=== PATIENT | male | born 1960 | race Caucasian/White ===

== ENCOUNTER → 2018-06-05 14:39 | Emergency (ER) | payer BC ==
[~2018-06-05 14:39] MED LIST: Iohexol 300* (CONTRAST) 10 ML SDV IV ONE; Ketorolac INJ* 30 MG/ML 1 ML VIAL IV PUSH ONE; Morphine VIAL* 10 MG/ML 1 ML VIAL IV ONE
--- NOTE | 2018-06-05 14:55 | ED ---
HPI Chest Pain - HPI Summary HPI Summary: Pt is a 58 y/o male brought in by EMS who presents to the ED c/o CP. He had a cardiac ablation yesterday in [place] with complications. Pt was discharged this morning. As per , they fixed 7 spots in his heart. This morning he had mild mid-sternal soreness due to the procedure. Pt had lunch around 14:00 today and afterwards his pain became worse. He rates his current pain an 8/10 in severity. Pt also notes nausea which is now resolved. Pain is made worse with deep breaths. He took Tramadol and Tylenol without relief. Pt was given NTG , Zofran, and ASA by EMS which temporarily lessened his pain. He is a pt of Dr. Estrada. PMHx GERD, AFib, HLD, cardioversion x2. Pt is a former smoker. - History of Current Complaint Time Seen by Provider: 06/05/18 14:46 Hx Obtained From: Patient, Family/[employer] Research Assistant - Onset/Duration: Started Hours Ago - This morning, Worse Since Timing: Constant Initial Severity: Mild Current Severity: Severe Pain Intensity: 8 Pain Scale Used: 0-10 Numeric Chest Pain Location: Mid Sternal Aggravating Factor(s): Deep Breaths Alleviating Factor(s): NTG 123 Associated Signs and Symptoms: Positive: Chest Pain - Allergy/Home Medications Allergies/Adverse Reactions: Allergies Allergy/AdvReac Type Severity Reaction Status Date / Time Penicillins Allergy Rash Verified 06/05/18 14:46 Home Medications: Home Medications Acetaminophen TAB* [Tylenol TAB*] 650 mg PO Q6H PRN 06/05/18 [History Confirmed 06/05/18] Al Hydrox/Mg Hydrox/Simet LIQ* [Maalox Plus*] 30 ml PO Q6H PRN 06/05/18 [ History Confirmed 06/05/18] Dabigatran CAP(NF) [Pradaxa CAP(NF)] 150 mg PO BID 06/05/18 [History Confirmed 06/05/18] Docusate CAP* [Colace Cap*] 200 mg PO DAILY PRN 06/05/18 [History Confirmed 11/16] Fenofibrate(NF) [Tricor(NF)] 145 mg PO DAILY 06/05/18 [History Confirmed ] Omeprazole (Nf) [Prilosec (NF)] 40 mg PO DAILY 06/05/18 [History Confirmed 06/05] Propafenone HCl [Rythmol Sr] 425 mg PO BID 06/05/18 [History Confirmed 06/05/18] traMADol TAB* [Ultram*] 50 mg PO Q6HR PRN 06/05/18 [History Confirmed 06/05/18] PMH/Surg Hx/FS Hx/Imm Hx Endocrine/Hematology History: Reports: Hx Anticoagulant Therapy Denies: Hx Diabetes, Hx Thyroid Disease Cardiovascular History: Reports: Hx Angina, Hx Atrial Fibrillation, Hx Hypercholesterolemia, Other Cardiovascular Problems/Disorders - cardioversion x2 Denies: Hx Coronary Artery Disease, Hx Hypertension, Hx Myocardial Infarction , Hx Pacemaker/ICD, Hx Valvular Heart Disease Respiratory History: Reports: Hx Sleep Apnea Denies: Hx Asthma, Hx Chronic Obstructive Pulmonary Disease (COPD) GI History: Reports: Hx Gastroesophageal Reflux Disease, Hx Hiatal Hernia History: Reports: Hx Benign Prostatic Hyperplasia Denies: Hx Renal Disease Musculoskeletal History: Reports: Hx Back Problems, Hx Gout Sensory History: Reports: Hx Vision Problem Denies: Hx Hearing Aid Opthamlomology History: Reports: Hx Vision Problem Neurological History: Reports: Hx Peripheral Neuropathy Denies: Hx Dementia, Hx Seizures Psychiatric History: Denies: Hx Panic Disorder, Hx Substance Abuse - Surgical History Surgery Procedure, Year, and Place: INTESTINAL BLOCKAGE AGE 8 MONTHS Infectious Disease History: No Infectious Disease History: Denies: Hx Hepatitis, Hx Human Immunodeficiency Virus (HIV), Traveled Outside the [place] in Last 30 Days - Family History Known Family History: Positive: Diabetes, Other - CA, cerebral aneurysm - Social History Hx Substance Use: No Substance Use Type: Reports: None Hx Tobacco Use: Yes Smoking Status (MU): Former Smoker Review of Systems Positive: Chest Pain Positive: Other - pain with breathing Positive: Nausea - resolved All Other Systems Reviewed And Are Negative: Yes Physical Exam - Summary Physical Exam Summary: Appearance: The patient is well-nourished in no acute distress and in no acute pain. Skin: The skin is warm and dry and skin color reflects adequate perfusion. HEENT: The head is normocephalic and atraumatic. The pupils are equal and reactive. The conjunctivae are clear and without drainage. Nares are patent and without drainage. Mouth reveals moist mucous membranes and the throat is without erythema and exudate. The external ears are intact. The ear canals are patent and without drainage. The tympanic membranes are intact. Neck: The neck is supple with full range of motion and non-tender. There are no carotid bruits. There is no neck vein distension. Respiratory: Chest is non-tender. Lungs are clear to auscultation and breath sounds are symmetrical and equal. Cardiovascular: Heart is regular rate and rhythm. There is no murmur or rub auscultated. There is no peripheral edema and pulses are symmetrical and equal. Very decreased heart sounds. Abdomen: The abdomen is soft and non-tender. There are normal bowel sounds heard in all four quadrants and there is no organomegaly palpated. Musculoskeletal: There is no back tenderness noted. Extremities are non-tender with full range of motion. There is good capillary refill. There is no peripheral edema or calf tenderness elicited. Neurological: Patient is alert and oriented to person, place and time. The patient has symmetrical motor strength in all four extremities. Cranial nerves are grossly intact. Deep tendon reflexes are symmetrical and equal in all four extremities. Psychiatric: The patient has an appropriate affect and does not exhibit any anxiety or depression. Triage Information Reviewed: Yes Vital Signs On Initial Exam: Initial Vitals Resp 23 06/05/18 14:44 Vital Signs Reviewed: Yes Diagnostics - Vital Signs Vital Signs Temp Pulse Resp BP Pulse Ox 06/05/18 14:47 97.4 F 88 20 110/81 98 06/05/18 14:44 23 - Laboratory Result Diagrams: 06/05/18 15:09 06/05/18 15:09 Lab Statement: Any lab studies that have been ordered have been reviewed, and results considered in the medical decision making process. - Radiology CXR Radiology Interpretation Completed By: Radiologist Summary of Radiographic Findings: No evidence for pulmonary edema, pneumothorax , or other acute intrathoracic process. ED physician reviewed radiology report. - CT Chest CT CT Interpretation Completed By: Radiologist Summary of CT Findings: No mediastinal air to suggest esophageal perforation. No pericardial effusion is noted. Bibasilar atelectasis is noted. Hepatic steatosis is noted. ED physician reviewed radiology report. - Ultrasound No standard instances Ultrasound Interpretation Completed By: ED Physician Summary of Ultrasound Findings: Echocardiogram: Small amount of pericardial fluid. Pending official radiology report. - EKG 14:45 Cardiac Rate: NL - 85 bpm EKG Rhythm: Sinus Rhythm ST Segment: Normal Ectopy: None Summary of EKG Findings: No STEMI Chest Pain Course/Dx - Course Course Of Treatment: Mr. Ritchie presented to the emergency department complaining of chest pain. He had an extensive cardiac of lesion yesterday and went home from the hospital today. He had lunch and then the chest pain that he has been having all day got acutely and suddenly worse. He complained of it being exacerbated by taking a breath but not having shortness of breath. He looked uncomfortable on arrival but was nontoxic in appearance with stable vitals. Labs were obtained and chest x-ray after EKG was found to be in normal sinus rhythm with no acute changes. Dr. Richards was contacted and recommended echocardiogram and a contrasted CT scan to rule out esophageal rupture. Both of those tests were negative aside from a slight amount of pericardial fluid on echo. And Dr. Richards felt it was safe to discharge him and treat him symptomatically. - Diagnoses Provider Diagnoses: Chest pain - Provider Notifications Discussed Care Of Patient With: Sarmad Richards Time Discussed With Above Provider: 15:50 Instructed by Provider To: Other - He recommends an echo and CT. At 16:10 he is in the room for a consult. He states the pt can be discharged after the CT and echo are done. Discharge - Sign-Out/Discharge Documenting (check all that apply): Patient Departure - Discharge Patient Received Moderate/Deep Sedation with Procedure: No - Discharge Plan Condition: Stable Disposition: HOME Prescriptions: oxyCODONE/Acetamin 5/325 MG* [Percocet 5/325 TAB*] 1 tab PO Q6H PRN #20 tab MDD 4 PRN Reason: Pain Patient Education Materials: Chest Pain (ED) Referrals: Sarmad Richards MD [Medical Doctor] - (2-3 days) Shady Loco MD [Primary Care Provider] - Additional Instructions: Take Ibuprofen as needed for pain. Stop taking Tramadol. RETURN TO THE ED WITH ANY NEW OR WORSENING SYMPTOMS. - Billing Disposition and Condition Condition: STABLE Disposition: Home - Attestation Statements Document Initiated by Scribe: Yes Documenting Scribe: Isabelle Srinivasan Provider For Whom Scribe is Documenting (Include Credential): Eleazar Jordan MD Scribe Attestation: Isabelle Williamson, scribed for Eleazar Jordan MD on 06/05/18 at 1752. Scribe Documentation Reviewed: Yes Provider Attestation: The documentation as recorded by the scribe, Isabelle Srinivasan accurately reflects the service I personally performed and the decisions made by me, Eleazar Jordan MD Status of Scribe Document: Viewed
--- OUTSIDE RECORDS SUMMARY | 2018-06-05 15:00 | XMS REPORT | Continuity of Care Document ---
:1960 External Reference #:[id number] Author Name Shady Loco M.D. Address [address] [facility] [place] [address] Care Team Providers Name Role Phone Shady Loco MD Care Team Information [employer] Unavailable Shady Loco MD Primary Care Physician Unavailable Payers Date Identification Numbers Payment Provider Subscriber Effective: 2017 Policy Number: [id number] [facility] Exchange Lindsay Thornton Group Number: [id number] [address] [id number] PayID: [id number] [place] [address] Advance Directives Description No Information Available Problems Date Description Provider Status Onset: 03/10/2012 Atrial fibrillation Shady Loco M.D. Active Onset: 08/17/2012 Hyperlipidemia Shady Loco M.D. Active Onset: 12/25/2012 Gastroesophageal reflux disease Shady Loco M.D. Active Onset: 06/25/2013 Backache Shady Loco M.D. Active Onset: 07/10/2013 Idiopathic peripheral neuropathy Shady Loco M.D. Active Onset: 07/10/2013 Sleep apnea Shady Loco M.D. Active Onset: 07/10/2013 Benign prostatic hypertrophy Shady Loco M.D. Active without outflow obstruction Onset: 11/20/2015 Degenerative joint disease Shady Loco M.D. Active involving multiple joints Onset: 09/24/2016 Gouty arthritis of the ankle and/or Shady Loco M.D. Active foot Onset: 04/17/2017 Paroxysmal atrial fibrillation Shady Loco M.D. Active Onset: 01/14/2014 Disorder of rectum Shady Loco M.D. Resolved Resolved: 11/22/2015 Onset: 11/20/2015 Persistent atrial fibrillation Shady Loco M.D. 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 Tobacco Use Start: Unknown End: Former Cigarette Smoker quit cold turkey Unknown 1 Pack Daily Smoking Status Reviewed: 08/21/17 Former Cigarette Smoker quit cold turkey 1 Pack Daily ETOH Use Denies alcohol use Recreational Drug Use Denies Drug Use Tobacco Use Start: Unknown End: Patient is a former Unknown smoker Exercise Type/Frequency no reg exercise but is Current active in his job Sun Exposure Uses sunscreen Seat Belt/Car Seat Always uses a seat belt Allergies, Adverse Reactions, Alerts Date Description Reaction Status Severity Comments 08/07/2001 Penicillin Active Medications Medication Date Status Form Strength Qnty SIG Indications Ordering Provider Fenofibrate 09/24 Active Tablets 145mg 90tab Take One Shady s Tablet By Beronica Mouth M.DYadira Every Day Pradaxa 05/24 Active Capsules 150mg 180ca Take One Shady ps Capsule By Beronica Mouth M.DYadira Twice A Day Tramadol HCL 08/05 Active Tablets 50mg 60tab Take One M25.50 Shady s Tablet By Beronica Mouth M.DYadira Every 6 Hours as Needed Maximum Daily Dose=4 Metoprolol 06/25 Active Tablets 25mg 180ta 1 by mouth Shady F. Succinate ER 24HR bs twice a Shallish, day M.D. Omeprazole 06/25 Active Capsules 20mg 90cap Take One K21.[address] s Capsule By Beronica Mouth M.DYadira Every Day Propafenone HCL Active Caps ER 425mg bid Unknown ER / 12HR Colchicine 11/10 Hx Tablets 0.6mg 30tab 1 by mouth Shady F. s 2-3 a day Blaine Loco as needed M.D. 05/25 Methylprednisolon 11/10 Hx TBPK 4mg 21uni take as Shady F. ts Blaine Dave M.D. 11/17 Medrol 08/22 Hx TBPK 4mg 1unit take dose R21 Ly Kym s pack as DONTAE [place] - directed 11/10 Lyrica 04/17 Hx Capsules 150mg 1 po bid Shady F. Blaine Loco M.D. 08/22 Lyrica 12/26 Hx Capsules 50mg 60cap Take One Shady F. s Capsule By Beronica, - Mouth M.D. 04/17 Twice A Day; Maximum Daily Dose=2 Capsules pv Vitamin D3 12/22 Hx 100un Take One Nikki 1,000 Unit its Tablet By Gilbert, - Mouth M.D. 12/26 Every Vitamin D-3 12/16 Hx Capsules 1000Unit 180ca 2 by mouth Shady F. ps every day Blaine Loco M.D. 05/25 Prednisone 09/17 Hx Tablets 20mg 15tab / tabs Sandie s po qd x 2 [place], - days, 2 Afnp-C 09/26 tabs po qd x 3 days , then 1 by mouth every day x 4d, take with food Gabapentin 09/09 Hx Capsules 100mg 60cap Take One Shady F. s Capsule By Beronica, - Mouth M.D. 12/26 Times A Day Atorvastatin 12/05 Hx Tablets 10mg 90tab 1 by mouth Shady F. s every day Blaine Loco.Merrill 04/02 Cefuroxime Axetil 11/29 Hx Tablets 500mg 14tab 1 by mouth D23.5 Maxine s twice a [facility] [employer] - day x 7 Acetazolamide 11/19 Hx Tablets 125mg 20tab 1 po bid, Shady F. s to start Beronica, - day before M.DYadira 04/02 ascent, stop on descent pv Vitamin D3 04/21 Hx 100un Take One Nikki 1,000 Unit its Tablet By Gilbert, - Mouth M.D. 12/16 Every Day Bactroban 02/21 Hx Cream 2% 15uni use as Alejandro Dickerson /2014 ts braxton Garcia, - once a day M.D. 11/29 Vitamin D3 08/18 Hx Tablets 1000Unit 100ta 1 by mouth bs every day Blaine Stanton M.D. 11/19 Azithromycin 08/05 Hx Tablets 250mg 6tabs 2 take by 463 [place] /2015 mouth Jaimie, - tabletstod [employer] 02/21 ay, one tab days 2-5 until finished Warfarin Sodium 03/02 Hx Tablets 5mg 120ta 2 tablets Shady F. bs by mouth Beronica, - daily; july M.DYadira 05/24 adjusted based on inr results/pr otocol Pravastatin 01/14 Hx Tablets 10mg 30tab Take One Shady F. s Tablet By Beronica - Mouth Armando.Merrill 02/21 Every Day Xarelto 09/13 Hx Tablets 10mg 1 po qd [facility] - [facility] 03/02 Of Atorvastatin 07/28 Hx Tablets 10mg 90tab 1 po qd Shady F. Blaine Ugalde M.D. 01/14 Vitamin D-3 07/10 Hx Capsules 1000Unit 100ca 1 po qd Shady F. ps Blaine Loco M.D. 08/18 Physical Therapy 07/10 Hx treatment Shady F. and Blaine Loco M.D. 09/13 low back pain Warfarin Sodium 06/25 Hx Tablets 5mg 60tab 2 po qd Shady F. s Blaine Loco M.D. 09/13 Ultram 06/25 Hx Tablets 50mg 30tab 1 po q6h Shady F. s prn Blaine Loco M.D. 02/21 Diltiazem CD 12/25 Hx Caps ER 120mg 90cap 1 po qd Shady F. 24HR Blaine Ugalde M.D. 06/25 Aspirin Ec 12/25 Hx Tablets 81mg Shady F. Blaine Mayers M.D. 06/25 Warfarin Sodium 01/16 Hx Tablets 5mg 60tab take as Shady F. s directed Blaine Loco M.D. 12/25 Metoprolol 01/16 Hx Tablets 25mg 90tab 1 /2po qd Shady F. Succinate ER /2011 ER 24HR s Blaine Loco M.D. 12/25 Naprosyn 05/18 Hx Tablets 375mg 30tab 1 po tid Shady F. s prn with Blaine Loco food Mihai 06/08 Famotidine 05/18 Hx Tablets 20mg 180ta Take One Shady F. bs Tablet By Blaine Loco Mouth Mihai 06/25 Twice Day Erythromycin 07/02 Hx Gel 2% Suff apply to 709.9 Butler A. affected Mihai Yip - areas bid 05/18 for weeks Hydrocortisone 07/02 Hx Ointment 1% Suff apply to 709.9 Butler A. /2007 affected Mihai Yip - areas bid 05/18 for weeks Aciphex 05/27 Hx Tablets 20mg 30tab 1 PO qd Alejandro JYadira /2006 Blaine Key M.D. 07/02 Guiafenesin 05/26 Hx 600mg 30uni 1-2 bid ts prn Jose, - Cough/Lorenzo Afnp-C 06/04 est Robitussin ac 05/26 Hx 4Oz 1-2 TSP PO Q4H prn AT [facility], - hs Afnp-C 06/05 Nexium 08/07 Hx 40mg 30uni 1 qd ts Jose, - Afnp-C 05/13 Immunizations CPT Code Status Date Vaccine Lot # [id number] Given 05/25/2018 Influenza Virus Vaccine, Recombinant Dna, [id number] [place] [address] Given 04/16/2017 Tdap Tetanus, W Pertussis [id number] Given 12/26/2016 Influenza Vac, Quadrivalent, Slit Virus, Im [id number] 88860 Given 04/02/2016 Influenza Vac, Quadrivalent, Slit Virus, Im [id number] Given 02/21/2015 Influenza Vac, Quadrivalent, Slit Virus, Im [id number] 40417 Given 01/14/2014 DO Not Use Split Influenza Virus Vaccine [id number] 41293 Given 12/25/2012 DO Not Use Split Influenza Virus Vaccine [id number] 28051 Given 04/09/2012 DO Not Use Split Influenza Virus Vaccine [id number] Vital Signs Date Vital Result Comment 05/25/2018 9:48am BP Systolic 106 mmHg BP Diastolic 70 mmHg Heart Rate 104 /min Body Temperature 97.9 F Height 70.75 inches 5'10.75" measured 04/02/16 Weight 271.00 lb BMI (Body Mass Index) 38.1 kg/m2 11/10/2017 10:23am BP Systolic 122 mmHg BP Diastolic 80 mmHg Heart Rate 72 /min Body Temperature 98.0 F Respiratory Rate 18 /min Height 70.75 inches 5'10.75" measured 04/02/16 Weight 265.00 lb BMI (Body Mass Index) 37.2 kg/m2 08/22/2017 12:25pm BP Systolic 112 mmHg BP Diastolic 80 mmHg Heart Rate 56 /min Body Temperature 97.5 F Respiratory Rate 16 /min Height 70.75 inches 5'10.75" measured 04/02/16 Weight 271.12 lb BMI (Body Mass Index) 38.1 kg/m2 04/17/2017 8:28am BP Systolic 108 mmHg BP Diastolic 68 mmHg Heart Rate 76 /min Body Temperature 97.0 F Height 70.75 inches 5'10.75" measured 04/02/16 Weight 275.00 lb BMI (Body Mass Index) 38.6 kg/m2 04/16/2017 9:51am BP Systolic 108 mmHg BP Diastolic 78 mmHg Heart Rate 64 /min Body Temperature 98.0 F Respiratory Rate 18 /min Height 70.75 inches 5'10.75" measured 04/02/16 Weight 275.00 lb BMI (Body Mass Index) 38.6 kg/m2 Right Visual Acuity Distance 20/20 Left Visual Acuity Distance 20/25 12/26/2016 3:04pm BP Systolic 112 mmHg BP Diastolic 72 mmHg Heart Rate 88 /min Body Temperature 97.7 F Respiratory Rate 16 /min Height 70.75 inches 5'10.75" measured 04/02/16 Weight 270.00 lb BMI (Body Mass Index) 37.9 kg/m2 09/24/2016 2:53pm BP Systolic 110 mmHg BP Diastolic 64 mmHg Heart Rate 80 /min Body Temperature 97.9 F Respiratory Rate 16 /min Height 70.75 inches 5'10.75" measured 04/02/16 Weight 266.00 lb BMI (Body Mass Index) 37.4 kg/m2 09/17/2016 4:17pm BP Systolic 128 mmHg BP Diastolic 70 mmHg Heart Rate 84 /min Body Temperature 97.7 F Respiratory Rate 16 /min Height 70.75 inches 5'10.75" measured 04/02/16 Weight 266.50 lb BMI (Body Mass Index) 37.4 kg/m2 09/09/2016 4:14pm BP Systolic 102 mmHg BP Diastolic 74 mmHg Heart Rate 84 /min Body Temperature 97.7 F Height 70.75 inches 5'10.75" measured 04/02/16 Weight 265.25 lb BMI (Body Mass Index) 37.3 kg/m2 05/24/2016 3:02pm BP Systolic 124 mmHg BP Diastolic 78 mmHg Heart Rate 80 /min Body Temperature 98.6 F Respiratory Rate 16 /min Height 70.75 inches 5'10.75" measured 04/02/16 Weight 268.00 lb BMI (Body Mass Index) 37.6 kg/m2 04/02/2016 9:57am BP Systolic 124 mmHg BP Diastolic 80 mmHg Heart Rate 72 /min Body Temperature 98.6 F Respiratory Rate 16 /min Height 70.75 inches 5'10.75" measured 04/02/16 Weight 266.00 lb BMI (Body Mass Index) 37.4 kg/m2 Right Visual Acuity Distance 20/20 corrected Left Visual Acuity Distance 20/20 corrected 11/30/2015 1:09pm BP Systolic 120 mmHg BP Diastolic 70 mmHg Heart Rate 80 /min Body Temperature 98.0 F Respiratory Rate 18 /min Height 71 inches 5'11" Weight 264.00 lb BMI (Body Mass Index) 36.8 kg/m2 11/20/2015 2:38pm BP Systolic 116 mmHg BP Diastolic 66 mmHg Heart Rate 80 /min Body Temperature 97.9 F Respiratory Rate 15 /min Height 71 inches 5'11" Weight 260.00 lb BMI (Body Mass Index) 36.3 kg/m2 03/10/2015 1:41pm BP Systolic 128 mmHg BP Diastolic 80 mmHg Heart Rate 68 /min Body Temperature 97.9 F Respiratory Rate 16 /min Height 71 inches 5'11" Weight 265.00 lb BMI (Body Mass Index) 37.0 kg/m2 Right Visual Acuity Distance 20/20 Left Visual Acuity Distance 20/20 02/21/2015 2:04pm BP Systolic 136 mmHg BP Diastolic 80 mmHg Heart Rate 64 /min Body Temperature 97.4 F Respiratory Rate 18 /min Height 71 inches 5'11" Weight 265.00 lb BMI (Body Mass Index) 37.0 kg/m2 08/05/2014 1:43pm BP Systolic 126 mmHg BP Diastolic 82 mmHg Heart Rate 84 /min Body Temperature 99.3 F Respiratory Rate 17 /min Height 71 inches 5'11" Weight 260.00 lb BMI (Body Mass Index) 36.3 kg/m2 02/02/2014 2:10pm BP Systolic 122 mmHg BP Diastolic 80 mmHg Heart Rate 80 /min Body Temperature 97.4 F Respiratory Rate 16 /min Height 71 inches 5'11" Weight 259.00 lb BMI (Body Mass Index) 36.1 kg/m2 01/14/2014 5:23pm BP Systolic 122 mmHg BP Diastolic 80 mmHg Heart Rate 80 /min Body Temperature 97.6 F Respiratory Rate 14 /min Height 71 inches 5'11" Weight 252.00 lb BMI (Body Mass Index) 35.1 kg/m2 09/13/2013 12:31pm BP Systolic 134 mmHg BP Diastolic 88 mmHg Heart Rate 72 /min Body Temperature 98.3 F Height 71 inches 5'11" Weight 252.00 lb BMI (Body Mass Index) 35.1 kg/m2 07/10/2013 10:57am BP Systolic 110 mmHg BP Diastolic 82 mmHg Heart Rate 90 /min irregular Body Temperature 98.6 F Respiratory Rate 16 /min O2 % BldC Oximetry 98 % Height 72 inches 6'0" 06/25/2013 11:18am BP Systolic 130 mmHg BP Diastolic 92 mmHg Heart Rate 78 /min Body Temperature 97.9 F Respiratory Rate 16 /min Height 72 inches 6'0" Weight 268.00 lb BMI (Body Mass Index) 36.3 kg/m2 12/25/2012 2:29pm BP Systolic 116 mmHg BP Diastolic 74 mmHg Heart Rate 80 /min Respiratory Rate 14 /min Height 72 inches 6'0" Weight 261.00 lb BMI (Body Mass Index) 35.4 kg/m2 08/17/2012 12:18pm BP Systolic 122 mmHg BP Diastolic 84 mmHg Heart Rate 68 /min Body Temperature 97.2 F Respiratory Rate 16 /min Height 62 inches 5'2" Weight 258.00 lb BMI (Body Mass Index) 47.2 kg/m2 05/04/2012 1:35pm BP Systolic 122 mmHg BP Diastolic 84 mmHg Heart Rate 72 /min Body Temperature 96.2 F Height 72 inches 6'0" Weight 262.00 lb BMI (Body Mass Index) 35.5 kg/m2 03/10/2012 7:48pm BP Systolic 140 mmHg BP Diastolic 88 mmHg Heart Rate 80 /min Body Temperature 98.1 F Height 72 inches 6'0" Weight 258.00 lb BMI (Body Mass Index) 35.0 kg/m2 03/02/2012 2:18pm BP Systolic 106 mmHg BP Diastolic 66 mmHg Heart Rate 76 /min Height 72 inches 6'0" Weight 265.00 lb BMI (Body Mass Index) 35.9 kg/m2 01/17/2012 8:33am BP Systolic 122 mmHg BP Diastolic 78 mmHg Heart Rate 78 /min Body Temperature 98.4 F Height 72 inches 6'0" Weight 255.00 lb BMI (Body Mass Index) 34.6 kg/m2 Right Visual Acuity Distance 20/20 Corrected Left Visual Acuity Distance 20/20 Corrected 09/28/2010 11:50am BP Systolic 126 mmHg BP Diastolic 80 mmHg Heart Rate 76 /min Body Temperature 97.3 F Respiratory Rate 12 /min Height 72 inches 6'0" Weight 252.00 lb BMI (Body Mass Index) 34.2 kg/m2 06/08/2010 1:07pm BP Systolic 130 mmHg BP Diastolic 82 mmHg Heart Rate 72 /min Respiratory Rate 15 /min Height 72 inches 6'0" Weight 260.00 lb BMI (Body Mass Index) 35.3 kg/m2 05/18/2010 1:05pm BP Systolic 134 mmHg BP Diastolic 84 mmHg Heart Rate 100 /min Body Temperature 98.5 F Height 72 inches 6'0" Weight 260.00 lb BMI (Body Mass Index) 35.3 kg/m2 07/03/2007 11:58am BP Systolic 120 mmHg BP Diastolic 80 mmHg Heart Rate 72 /min Body Temperature 98.1 F Height 72 inches 6'0" 05/13/2006 1:52pm BP Systolic 128 mmHg BP Diastolic 90 mmHg Heart Rate 96 /min Height 72 inches 6'0" Weight 253.00 lb BMI (Body Mass Index) 34.3 kg/m2 05/26/2002 3:05pm BP Systolic 130 mmHg BP Diastolic 84 mmHg Heart Rate 78 /min Body Temperature 98.9 F Height 72 inches 6'0" Weight 232.00 lb BMI (Body Mass Index) 31.5 kg/m2 08/07/2001 1:20pm BP Systolic 120 mmHg BP Diastolic 82 mmHg Heart Rate 88 /min Height 72 inches 6'0" Weight 234.00 lb BMI (Body Mass Index) 31.7 kg/m2 Results Test Date Facility Test Result H/L Range Note Ua - Non Micro (Fma) 05/25/2018 [facility] Medicine Appearance Clear (607)- - Color Yellow Glucose, Urine (Fma/CMC/CTX) Negative Bilirubin Negative Ketones Trace # SP Grav 1.030 Blood Negative PH 5.5 Protein Negative Urobil 0.2 Nitrite Negative Leukocytes (Fma/CMC/Centrex) Negative Laboratory test 05/25/2018 [facility] ([facility]) Free T4 <pending> 0.75- 1.54 finding TSH <pending> 0.5-5.0 PSA (ALL Lab Comp) <pending> 0.0-4.0 Laboratory test 11/10/2017 [facility] C Reactive 5.99 mg/L N <8.01 1, 2 finding Protein Laboratory test 11/10/2017 [facility] ([facility]) Uric Acid 6.9 mg/dL 2.5- 9.2 finding Lipid Profile 11/10/2017 [facility] ([facility]) Cholesterol 165 mg/dL 120- 200 Triglycerides 142 mg/dL 30-200 HDL Cholesterol 35 mg/dL 30-70 LDL (Calculated) 102 CALC 0-129 VLDL Cholesterol 28 mg/dL 0-50 HDL Risk Factor 4.7 CALC High 0.0-4.4 Comprehensive Metabolic 11/10/2017 [facility] ([facility]) Sodium 138 mEq/L 134-149 Prof Potassium 4.1 mEq/L 3.6-5.5 Chloride 104 mEq/L 94-112 Carbon Dioxide 27 mEq/L 21-32 Glucose 80 mg/dL 70-105 BUN 24 mg/dL 6-26 Creatinine 1.2 mg/dL 0.6-1.4 BUN/Creat Ratio 20.0 CALC 8.0-36.0 Calcium 9.4 mg/dL 8.6-10.2 Total Protein 6.9 g/dL 6.4-8.3 Albumin 4.7 g/dL 3.8-5.5 Globulin 2.2 g/dL 2.0-4.8 A/G Ratio 2.1 CALC 0.6-2.3 Alk. Phosphatase 40 U/L 22-95 Alt (SGPT) 41 U/L High 7-35 3 Ast (Sgot) 18 U/L 5-34 Total Bilirubin 0.6 mg/dL 0.2-1.3 GFR Non- >60 ml/min/1.73m^ >=60 GFR >60 ml/min/1.73m^ >=60 CBC Electronic Fma 11/10/2017 [facility] ([facility]) WBC 8.2 x10^3/UL 4.0- 10.0 RBC 5.05 x10^6/UL 3.93-6.00 HGB 15.3 g/dL 12.0-17.0 HCT 44 % 35-50 MCV 87.5 fL 80.0-95.0 MCH 30.3 pg 25.6-32.2 MCHC 34.6 g/dL 32.2-36.0 RDW-CV 12.8 % 11.6-14.4 PLT 228 x10^3/UL 163-400 MPV 9.1 fL Low 9.4-12.4 Laci# 5.31 x10^3/UL 1.56-6.13 Lymph# 2.20 x10^3/UL 1.18-3.74 Todd# 0.51 x10^3/UL 0.24-0.82 Eos # 0.2 x10^3/UL 0.0-0.5 Baso # 0.04 x10^3/UL 0.01-0.08 Laci% 64.5 % 34.0-70.0 Lymph % 26.7 % 20.0-52.0 Todd% 6.2 % 5.0-12.0 Eos% 1.9 % 0.7-7.0 Baso% 0.5 % 0.1-1.2 Laboratory test finding 11/10/2017 [facility] ([facility]) TSH 3.94 mIU/L 0.50-6.00 CK 50 U/L 38-174 Laboratory test 08/05/2017 [facility] (General) [facility] Lab See Attached finding Test Laboratory test 04/17/2017 [facility] ([facility]) PSA 0.9 ng/mL 0.0-4.0 finding Complete Blood 04/17/2017 [facility] ([facility]) WBC 6.7 x10^3/UL 3.6-9.6 Count RBC 4.94 x10^6/UL 3.90-5.70 HGB 15.4 g/dL 12.1-17.2 HCT 45 % 36-50 MCV 92.0 fL 82.2-97.4 MCH 31.2 pg 27.6-33.3 MCHC 34.0 g/dL 33.0-35.5 RDW 13.1 % 11.6-13.7 PLT 247 x10^3/UL 150-400 MPV 7.6 fL 7.4-10.4 Gran # 4.5 x10^3/UL 1.5-7.2 Lymph# 2.0 x10^3/UL 0.7-4.9 Todd# 0.2 x10^3/UL 0.1-0.9 Gran % 65.6 % 42.2-75.2 Lymph % 30.1 % 20.5-51.1 Todd% 4.3 % 1.7-9.3 Lipid Profile 04/17/2017 [facility] ([facility]) Cholesterol 176 mg/dL 120- 200 Triglycerides 119 mg/dL 30-200 HDL Cholesterol 34 mg/dL 30-70 LDL (Calculated) 118 CALC 0-129 VLDL Cholesterol 24 mg/dL 0-50 HDL Risk Factor 5.2 CALC High 0.0-4.4 Comprehensive Metabolic 04/17/2017 [facility] (a) Sodium 147 mEq/L 134-149 Prof Potassium 4.6 mEq/L 3.6-5.5 Chloride 109 mEq/L 94-112 Carbon Dioxide 26 mEq/L 21-32 Glucose 103 mg/dL 70-105 BUN 20 mg/dL 6-26 Creatinine 1.1 mg/dL 0.6-1.4 BUN/Creat Ratio 18.2 CALC 8.0-36.0 Calcium 9.2 mg/dL 8.6-10.2 Total Protein 6.6 g/dL 6.4-8.3 Albumin 4.6 g/dL 3.8-5.5 Globulin 2.0 g/dL 2.0-4.8 A/G Ratio 2.3 CALC 0.6-2.3 Alk. Phosphatase 47 U/L 22-95 Alt (SGPT) 46 U/L High 7-35 Ast (Sgot) 22 U/L 5-34 Total Bilirubin 0.6 mg/dL 0.2-1.3 GFR Non- >60 ml/min/1.73m^ >=60 GFR >60 ml/min/1.73m^ >=60 Laboratory test finding 04/17/2017 [facility] (a) TSH 2.77 mIU/L 0.50-6.00 CK 89 U/L 38-174 Ua - Non Micro (a) 04/16/2017 [facility] Appearance CLEAR (607)- - Color YELLOW Glucose, Urine (Fma/CMC/CTX) NEG Bilirubin NEG Ketones NEG SP Grav 1.025 Blood NEG PH 6.0 Protein NEG Urobil 0.2 Nitrite NEG Leukocytes (a/[facility]/Centrex) NEG Laboratory test 01/08/2017 [facility] Hemoglobin A1c 5.5 % 4.1-5.7 finding (607)- - (a) Laboratory test 01/08/2017 [facility] C6 B. burgdorferi <0.91 0.00-0.90 [address] [place] [address] (Lyme) [place] [address] (607)- - Methylmalonic Acid, 01/08/2017 [facility] Methylmalonic 242 0-[address] [place] [address] Acid, Serum nmol/[place] [address] (607)- - Spep Serum Protein 01/08/2017 [facility] Protein, Total, 6.7 g/dL 6.0-8.[address] [place] [address] [place] [address] (607)- - Albumin 3.9 g/dL 2.9-4.4 Bvkdo-8-Bxxtnkfk 0.2 g/dL 0.0-0.4 Beevc-0-Dryouoho 0.5 g/dL 0.4-1.0 Beta Globulin 1.1 g/dL 0.7-1.3 Gamma Globulin 1.0 g/dL 0.4-1.8 M-Zoran Not Observed g/dL Not Observed Globulin, Total 2.8 g/dL 2.2-3.9 A/G Ratio 1.4 0.7-1.7 Please note: See Comment: 5 Lyme AB/Western 01/08/2017 [facility] Lyme IgG/IgM <0.91 ISR 0.00-0.90 6 Blot Reflex [address] [facility] [place] [address] (607)- - Lyme Disease Ab, Quant, IgM <0.80 index 0.00-0.79 7 Laboratory test 01/08/2017 [facility] PDF [id number] SEE IMAGE finding [address] [place] [address] (651)- - Laboratory test 01/08/2017 [facility] (a) Vitamin B-12 557 pg/mL 230-10 finding 50 Folate Level 9.01 ng/mL 3.00-16.00 Complete Blood Count 11/25/2016 [facility] (Fma) WBC 6.5 x10^3/UL 3.6-9.6 RBC 5.31 x10^6/UL 3.90-5.70 HGB 16.6 g/dL 12.1-17.2 HCT 49 % 36-50 MCV 92.0 fL 82.2-97.4 MCH 31.3 pg 27.6-33.3 MCHC 34.0 g/dL 33.0-35.5 RDW 13.1 % 11.6-13.7 PLT 243 x10^3/UL 150-400 MPV 7.1 fL Low 7.4-10.4 Gran # 4.4 x10^3/UL 1.5-7.2 Lymph# 1.8 x10^3/UL 0.7-4.9 Todd# 0.3 x10^3/UL 0.1-0.9 Gran % 66.3 % 42.2-75.2 Lymph % 28.1 % 20.5-51.1 Todd% 5.6 % 1.7-9.3 Comprehensive Metabolic 11/25/2016 [facility] ([facility]) Sodium 134 mEq/L 134-149 Prof Potassium 4.4 mEq/L 3.6-5.5 Chloride 97 mEq/L 94-112 Carbon Dioxide 32 mEq/L 21-32 Glucose 124 mg/dL High 70-105 BUN 21 mg/dL 6-26 Creatinine 1.0 mg/dL 0.6-1.4 BUN/Creat Ratio 21.0 CALC 8.0-36.0 Calcium 9.3 mg/dL 8.6-10.2 Total Protein 6.6 g/dL 6.4-8.3 Albumin 4.6 g/dL 3.8-5.5 Globulin 2.0 g/dL 2.0-4.8 A/G Ratio 2.3 CALC 0.6-2.3 Alk. Phosphatase 49 U/L 22-95 Alt (SGPT) 25 U/L 7-35 Ast (Sgot) 20 U/L 5-34 Total Bilirubin 0.8 mg/dL 0.2-1.3 GFR Non- >60 ml/min/1.73m^ >=60 GFR >60 ml/min/1.73m^ >=60 Laboratory test 11/25/2016 [facility] (a) Free T4 1.00 ng/dL 0.75- 1.54 finding TSH 1.90 mIU/L 0.50-6.00 Lipid Profile 11/25/2016 [facility] (a) Cholesterol 209 mg/dL High 120-200 Triglycerides 204 mg/dL High 30-200 HDL Cholesterol 39 mg/dL 30-70 LDL (Calculated) 129 CALC 0-129 VLDL Cholesterol 41 mg/dL 0-50 HDL Risk Factor 5.4 CALC High 0.0-4.4 Laboratory test finding 11/25/2016 [facility] (a) CK 71 U/L 38- 174 8 Uric Acid 7.4 mg/dL 2.5-9.2 Laboratory test 09/09/2016 [facility] C-Reactive 1.6 mg/L 0.0-4.[address] [place] [address] Protein, [place] [address] (988)- - Protein 09/09/2016 [facility] Protein, Total, 7.2 g/dL 6.0-8.[address] [place] [address] Serum W/[place] [address] (149)- - Albumin 4.1 g/dL 2.9-4.4 Pcvwo-9-Khhllkqe 0.2 g/dL 0.0-0.4 Qagux-6-Aqfqpxoc 0.7 g/dL 0.4-1.0 Beta Globulin 1.1 g/dL 0.7-1.3 Gamma Globulin 1.0 g/dL 0.4-1.8 M-Zoran Not Observed g/dL Not Observed Globulin, Total 3.1 g/dL 2.2-3.9 A/G Ratio 1.3 0.7-1.7 Please note: See Comment: 9 P E Interpretation, S See Comment: 10 Laboratory test finding 09/09/2016 [facility] ([facility]) CK 85 U/L 38- 174 Vitamin B-12 828 pg/mL 230-1050 Vitamin D25 41 30-100 LDL, Direct 98 mg/dL 0-130 Lipid Profile 09/09/2016 [facility] ([facility]) Cholesterol 227 mg/dL High 120-200 Triglycerides 481 mg/dL High 30-200 HDL Cholesterol 34 mg/dL 30-70 LDL (Calculated) 97 CALC 0-129 11 VLDL Cholesterol 96 mg/dL High 0-50 HDL Risk Factor 6.7 CALC High 0.0-4.4 Laboratory test 09/09/2016 [facility] PDF [id number] SEE IMAGE finding [id number] [place] [id number] [phone] Complete Blood 09/09/2016 [facility] ([facility]) WBC 6.8 3.6-9. Count x10^3/UL 6 RBC 5.30 x10^6/UL 3.90-5.70 HGB 16.4 g/dL 12.1-17.2 HCT 49 % 36-50 MCV 93.0 fL 82.2-97.4 MCH 30.9 pg 27.6-33.3 MCHC 33.3 g/dL 33.0-35.5 RDW 13.6 % 11.6-13.7 PLT 210 x10^3/UL 150-400 MPV 6.7 fL Low 7.4-10.4 Gran # 4.1 x10^3/UL 1.5-7.2 Lymph# 2.2 x10^3/UL 0.7-4.9 Todd# 0.5 x10^3/UL 0.1-0.9 Gran % 59.0 % 42.2-75.2 Lymph % 33.3 % 20.5-51.1 Todd% 7.7 % 1.7-9.3 Laboratory test 09/09/2016 [facility] Diego [facility] ([facility]) Free T4 1.00 ng/dL 0.75- 1.54 finding TSH 2.49 mIU/L 0.50-6.00 Comprehensive Metabolic 09/09/2016 [facility] ([facility]) Sodium 141 mEq/L 134-149 Prof Potassium 4.1 mEq/L 3.6-5.5 Chloride 103 mEq/L 94-112 Carbon Dioxide 26 mEq/L 21-32 Glucose 98 mg/dL 70-105 BUN 22 mg/dL 6-26 Creatinine 1.1 mg/dL 0.6-1.4 BUN/Creat Ratio 20.0 CALC 8.0-36.0 Calcium 9.4 mg/dL 8.6-10.2 Total Protein 7.1 g/dL 6.4-8.3 Albumin 4.9 g/dL 3.8-5.5 Globulin 2.2 g/dL 2.0-4.8 A/G Ratio 2.2 CALC 0.6-2.3 Alk. Phosphatase 63 U/L 22-95 Alt (SGPT) 30 U/L 7-35 Ast (Sgot) 20 U/L 5-34 Total Bilirubin 0.5 mg/dL 0.2-1.3 GFR Non- >60 ml/min/1.73m^ >=60 GFR >60 ml/min/1.73m^ >=60 Laboratory test finding 05/24/2016 [facility] Inr (a) 1.6 Low 2.0- 3.0 (607)- - Hemoglobin A1c (a) 5.7 % 4.1-5.7 Laboratory test finding 05/24/2016 Juan Diego Becker ([facility]) CK 105 U/L 38- 174 Vitamin D25 37 30-100 LDL, Direct 109 mg/dL 0-130 Complete Blood Count 05/24/2016 Juan Diego Becker ([facility]) WBC 7.4 x10^3/UL 3.6-9.6 RBC 5.25 x10^6/UL 3.90-5.70 HGB 16.3 g/dL 12.1-17.2 HCT 48 % 36-50 MCV 91.0 fL 82.2-97.4 MCH 31.1 pg 27.6-33.3 MCHC 34.2 g/dL 33.0-35.5 RDW 13.9 % High 11.6-13.7 PLT 236 x10^3/UL 150-400 MPV 6.7 fL Low 7.4-10.4 Gran # 4.6 x10^3/UL 1.5-7.2 Lymph# 2.3 x10^3/UL 0.7-4.9 Todd# 0.5 x10^3/UL 0.1-0.9 Gran % 60.6 % 42.2-75.2 Lymph % 32.2 % 20.5-51.1 Todd% 7.2 % 1.7-9.3 Comprehensive Metabolic 05/24/2016 Juan Diego Rosita ([facility]) Sodium 139 mEq/L 134-149 Prof Potassium 4.5 mEq/L 3.6-5.5 Chloride 105 mEq/L 94-112 Carbon Dioxide 29 mEq/L 21-32 Glucose 99 mg/dL 70-105 BUN 17 mg/dL 6-26 Creatinine 1.0 mg/dL 0.6-1.4 BUN/Creat Ratio 17.0 CALC 8.0-36.0 Calcium 9.2 mg/dL 8.6-10.2 Total Protein 7.4 g/dL 6.4-8.3 Albumin 4.4 g/dL 3.8-5.5 Globulin 3.0 g/dL 2.0-4.8 A/G Ratio 1.5 CALC 0.6-2.3 Alk. Phosphatase 68 U/L 22-95 Alt (SGPT) 29 U/L 7-35 Ast (Sgot) 22 U/L 5-34 Total Bilirubin 0.4 mg/dL 0.2-1.3 GFR Non- >60 ml/min/1.73m^ >=60 GFR >60 ml/min/1.73m^ >=60 Lipid Profile 05/24/2016 Juan Diego Rosita ([facility]) Cholesterol 235 mg/dL High 120-200 Triglycerides 571 mg/dL High 30-200 HDL Cholesterol 34 mg/dL 30-70 LDL (Calculated) 87 CALC 0-129 VLDL Cholesterol 114 mg/dL High 0-50 HDL Risk Factor 6.9 CALC High 0.0-4.4 Laboratory test 05/24/2016 Juan Diego Rosita ([facility]) Free T4 0.86 ng/dL 0.75- 1.54 finding TSH 3.00 mIU/L 0.50-6.00 Ua - Non Micro (Fma) 04/02/2016 [facility] Appearance clear (607)- - Color yellow Glucose, Urine (Fma/CMC/CTX) neg Bilirubin neg Ketones neg SP Grav 1.020 Blood neg PH 6.0 Protein neg Urobil 0.2 Nitrite neg Leukocytes (a/[facility]) neg Laboratory test 03/05/2016 [facility] Surgical SEE RESULT 12 finding Pathology BELOW Laboratory test 03/05/2016 [facility] Clotest SEE RESULT 13 finding BELOW Complete Blood 11/20/2015 Adamson Rosita (a) WBC 6.7 x10^3/UL 3.6-9.6 Count RBC 4.87 x10^6/UL 3.90-5.70 HGB 15.8 g/dL 12.1-17.2 HCT 46 % 36-50 MCV 94.0 fL 82.2-97.4 MCH 32.4 pg 27.6-33.3 MCHC 34.4 g/dL 33.0-35.5 RDW 13.7 % 11.6-13.7 PLT 199 x10^3/UL 150-400 MPV 7.0 fL Low 7.4-10.4 Gran # 4.3 x10^3/UL 1.5-7.2 Lymph# 2.1 x10^3/UL 0.7-4.9 Todd# 0.3 x10^3/UL 0.1-0.9 Gran % 63.1 % 42.2-75.2 Lymph % 32.0 % 20.5-51.1 Todd% 4.9 % 1.7-9.3 Rheumatoid 11/20/2015 [facility] Ra Latex 7.1 IU/mL 0.0-13.9 14 Arthritis Factor [address] [facility]. ([facility]) [place] [address] (607)- - Lyme AB/Western 11/20/2015 [facility] Lyme IgG/IgM <0.91 ISR 0.00-0.90 15 Blot Reflex [address] [facility] [place] [address] (607)- - Lyme Disease Ab, Quant, IgM <0.80 index 0.00-0.79 16 Laboratory test 11/20/2015 [facility] Sedimentation Rate 5mm finding (607)- - Comprehensive 11/20/2015 Juan Diego Rosita (a) Sodium 137 mEq/L 134-14 Metabolic Prof 9 Potassium 3.7 mEq/L 3.6-5.5 Chloride 102 mEq/L 94-112 Carbon Dioxide 22 mEq/L 21-32 Glucose 96 mg/dL 70-105 BUN 20 mg/dL 6-26 Creatinine 1.0 mg/dL 0.6-1.4 BUN/Creat Ratio 20.0 CALC 8.0-36.0 Calcium 8.8 mg/dL 8.6-10.2 Total Protein 6.8 g/dL 6.4-8.3 Albumin 4.3 g/dL 3.8-5.5 Globulin 2.5 g/dL 2.0-4.8 A/G Ratio 1.7 CALC 0.6-2.3 Alk. Phosphatase 53 U/L 22-95 Alt (SGPT) 31 U/L 7-35 Ast (Sgot) 20 U/L 5-34 Total Bilirubin 0.4 mg/dL 0.2-1.3 GFR Non- >60 ml/min/1.73m^ >=60 GFR >60 ml/min/1.73m^ >=60 Laboratory test 11/20/2015 Adamson Rosita ([facility]) Free T4 0.97 ng/dL 0.75- 1.54 finding TSH 2.57 mIU/L 0.50-6.00 PSA 1.0 ng/mL 0.0-4.0 Lipid Profile 11/20/2015 Adamson Rosita (a) Cholesterol 252 mg/dL High 120-200 Triglycerides 446 mg/dL High 30-200 HDL Cholesterol 35 mg/dL 30-70 LDL (Calculated) 128 CALC 0-129 VLDL Cholesterol 89 mg/dL High 0-50 HDL Risk Factor 7.2 CALC High 0.0-4.4 Ua - Non Micro (Fma) 11/20/2015 [facility] Appearance clear (607)- - Color yellow Glucose, Urine (Fma/CMC/CTX) neg Bilirubin neg Ketones neg SP Grav 1.020 Blood neg PH 5.5 Protein neg Urobil 0.2 Nitrite neg Leukocytes (a/[facility]) neg Laboratory test 11/20/2015 [facility] Medicine Inr (Fma) 2.6 2.0-3.0 finding (607)- - Laboratory test 11/20/2015 Adamson Rosita (a) Vitamin B-12 863 pg/mL 230-1050 finding LDL, Direct 132 mg/dL High 0-130 Ua - Non Micro (Fma) 03/10/2015 [facility] Appearance CLEAR (607)- - Color YELLOW Glucose, Urine (Fma/CMC/CTX) NEG Bilirubin NEG Ketones NEG SP Grav 1.015 Blood NEG PH 6.0 Protein NEG Urobil 0.2 Nitrite NEG Leukocytes ([facility]ma/CMC/[facility]) NEG Laboratory test 02/21/2015 [facility] Inr (Fma) 2.5 2.0-3.0 finding (607)- - Laboratory test 09/08/2014 [facility] Inr (Fma) 2.1 2.0-3.0 finding (607)- - Laboratory test 08/10/2014 [facility] Inr 1.62 High 0.78-1.07 17, 18 finding Basic Metabolic 08/10/2014 [facility] Sodium 136 mmol/L N 133-145 Panel Potassium 3.8 mmol/L N 3.5-5.0 Chloride 106 mmol/L N 101-111 Co2 Carbon Dioxide 25 mmol/L N 22-32 Anion Gap 5 mmol/L N 2-11 Glucose 125 mg/dL High 70-100 Blood Urea Nitrogen 22 mg/dL N 6-24 Creatinine 0.85 mg/dL N 0.67-1.17 BUN/Creatinine Ratio 25.9 High 8-20 Calcium 8.9 mg/dL N 8.6-10.3 Egfr Non- 94.7 N >60 Egfr 121.7 N >60 19 Lyme Western Blot Ser 08/05/2014 [facility] IgG P93 Ab. Absent [address] [place] [id number] [phone] IgG P66 Ab. Absent IgG P58 Ab. Absent IgG P45 Ab. Absent IgG P41 Ab. Absent IgG P39 Ab. Absent IgG P30 Ab. Absent IgG P28 Ab. Absent IgG P23 Ab. Absent IgG P18 Ab. Absent Lyme IgG WB Interp. Negative 20 IgM P41 Ab. Absent IgM P39 Ab. Absent IgM P23 Ab. Absent Lyme IgM WB Interp. Negative 21 Laboratory test 08/05/2014 [facility] Sed Rate (Fma/CMC/[facility]) 7mm finding (607)- - Inr (Fma) 3.6 High 2.0-3.0 Laboratory test 06/01/2014 [facility] Inr (Fma) 2.0 2.0-3.0 finding (607)- - Laboratory test 03/12/2014 [facility] Inr (Fma) 2.3 2.0-3.0 finding (607)- - Laboratory test 03/08/2014 [facility] Inr (Fma) 1.3 Low 2.0-3.0 finding (607)- - Surgical Pathology 03/02/2014 [facility] S RUN DATE: 03/03/ <SEE NOTE> Ua - Non Micro 02/02/2014 [facility] Appearance CLEAR (Fma) (607)- - Color YELLOW Glucose, Urine (Fma/CMC/CTX) NEG Bilirubin NEG Ketones NEG SP Grav 1.020 Blood NEG PH 7.0 Protein NEG Urobil 1.0 Nitrite NEG Leukocytes ([facility]ma/[facility]) NEG Ua - Non Micro (Fma) 01/14/2014 [facility] Appearance clear (607)- - Color yellow Glucose, Urine (Fma/CMC/CTX) neg Bilirubin neg Ketones neg SP Grav 1.025 Blood neg PH 5.5 Protein neg Urobil 0.2 Nitrite neg Leukocytes (Fma/[facility]) neg Laboratory test finding 09/13/2013 Adamson Rosita (a) TSH 2.96 mIU/L 0.50-6.00 CK 75 U/L 38-174 Lipid Profile 09/13/2013 Adamson Rosita (a) Cholesterol 137 mg/dL 120- 200 Triglycerides 289 mg/dL High 30-200 HDL Cholesterol 42 mg/dL 30-70 LDL (Calculated) 37 CALC 0-129 VLDL Cholesterol 58 mg/dL High 0-50 HDL Risk Factor 3.3 CALC 0.0-4.4 Laboratory test 09/13/2013 Adamson Rosita (a) LDL, Direct 65 mg/dL 0- 130 finding Complete Blood Count 09/13/2013 Adamson Rosita (a) WBC 7.2 x10^3/UL 3.6-9.6 RBC 5.00 x10^6/UL 3.90-5.70 HGB 15.7 g/dL 12.1-17.2 HCT 47 % 36-50 MCV 93.0 fL 82.2-97.4 MCH 31.4 pg 27.6-33.3 MCHC 33.7 g/dL 33.0-35.5 RDW 12.0 % 11.6-13.7 PLT 208 x10^3/UL 150-400 MPV 7.1 fL Low 7.4-10.4 Gran # 5.1 x10^3/UL 1.5-7.2 Lymph# 1.8 x10^3/UL 0.7-4.9 Todd# 0.3 x10^3/UL 0.1-0.9 Gran % 69.1 % 42.2-75.2 Lymph % 26.2 % 20.5-51.1 Todd% 4.7 % 1.7-9.3 Comprehensive Metabolic 09/13/2013 Juan Diego Rosita ([facility]) Sodium 138 mEq/L 134-149 Prof Potassium 4.0 mEq/L 3.6-5.5 Chloride 100 mEq/L 94-112 Carbon Dioxide 25 mEq/L 21-32 Glucose 97 mg/dL 70-105 BUN 20 mg/dL 6-26 Creatinine 1.1 mg/dL 0.6-1.4 BUN/Creat Ratio 18.2 CALC 8.0-36.0 Calcium 9.4 mg/dL 8.6-10.2 Total Protein 7.6 g/dL 6.3-8.1 Albumin 4.8 g/dL 3.8-5.5 Globulin 2.8 g/dL 2.0-4.8 A/G Ratio 1.7 CALC 0.6-2.3 Alk. Phosphatase 71 U/L 22-95 Alt (SGPT) 36 U/L High 7-35 Ast (Sgot) 19 U/L 5-34 Total Bilirubin 0.8 mg/dL 0.2-1.3 Laboratory test 07/21/2013 [facility] Inr (Fma) 3.3 High 2-3 finding (607)- - Lyme Igg/M W/RFX 07/10/2013 [facility] Lyme <0.91 index 0.00-0.90 23, [address] IgG/[place] [address] [phone] Lyme Disease Ab, Quant, IgM <0.91 index 0.00-0.90 25 Lipid Profile 07/10/2013 Juan Diego Rosita ([facility]) Cholesterol 260 mg/dL High 120-200 Triglycerides 702 mg/dL High 30-200 HDL Cholesterol 34 mg/dL 30-70 LDL (Calculated) 86 CALC 0-129 VLDL Cholesterol 140 mg/dL High 0-50 HDL Risk Factor 7.6 CALC High 0.0-4.4 Laboratory test 07/10/2013 [facility] Inr (Fma) 2.8 2-3 finding (607)- - Laboratory test 07/10/2013 Juan Diego Becker ([facility]) Vitamin B-12 592 pg/mL 230-1050 finding Vitamin D25 29 Low 30-100 PSA 1.9 ng/mL 0.0-4.0 LDL, Direct 139 mg/dL High 0-130 Protein Elect 07/10/2013 [facility] Protein Elect SEE BELOW Serum 28 [facility] [place] [address] [phone] Graph Report TO FOLLOW Albumin 4.2 g/dL 3.2-5.6 Alpha 1 Globulin, Serum 0.2 g/dL 0.1-0.4 Alpha 2 Globulin, Serum 0.6 g/dL 0.4-1.2 Beta Globulin, Serum 1.2 g/dL 0.6-1.3 Gamma Globulin 1.0 g/dL 0.5-1.6 M-Zoran Gamma NOT OBSERVED g/dL Not Observed M-Zoran Beta NOT OBSERVED g/dL Not Observed Globulin,Total 3.0 g/dL 2.0-4.5 A/G Ratio 1.4 0.7-2.0 Protein, Total 7.2 g/dL 6.4-8.3 Interpretation, Serum SEE COMMENT 26 Laboratory test 07/03/2013 [facility] Medicine Inr (Fma) 1.7 Low 2.0-3.0 finding (607)- - Laboratory test 06/30/2013 [facility] Inr (Fma) 1.2 Low 2.0-3.0 finding (607)- - Complete Blood Count 06/25/2013 Juan Diego Becker (a) WBC 6.1 x10^3/UL 3.6-9.6 RBC 4.99 x10^6/UL 3.90-5.70 HGB 15.3 g/dL 12.1-17.2 HCT 46 % 36-50 MCV 93.0 fL 82.2-97.4 MCH 30.7 pg 27.6-33.3 MCHC 33.1 g/dL 33.0-35.5 RDW 12.0 % 11.6-13.7 PLT 199 x10^3/UL 150-400 MPV 6.9 fL Low 7.4-10.4 Gran # 3.8 x10^3/UL 1.5-7.2 Lymph# 2.0 x10^3/UL 0.7-4.9 Todd# 0.3 x10^3/UL 0.1-0.9 Gran % 60.6 % 42.2-75.2 Lymph % 34.0 % 20.5-51.1 Todd% 5.4 % 1.7-9.3 Comprehensive Metabolic 06/25/2013 Adamson Rosita ([facility]) Sodium 135 mEq/L 134-149 Prof Potassium 4.1 mEq/L 3.6-5.5 Chloride 95 mEq/L 94-112 Carbon Dioxide 25 mEq/L 21-32 Glucose 99 mg/dL 70-105 BUN 16 mg/dL 6-26 Creatinine 1.1 mg/dL 0.6-1.4 BUN/Creat Ratio 14.5 CALC 8.0-36.0 Calcium 9.2 mg/dL 8.6-10.2 Total Protein 7.3 g/dL 6.3-8.1 Albumin 4.8 g/dL 3.8-5.5 Globulin 2.5 g/dL 2.0-4.8 A/G Ratio 1.9 CALC 0.6-2.3 Alk. Phosphatase 63 U/L 22-95 Alt (SGPT) 30 U/L 10-40 Ast (Sgot) 18 U/L 5-34 Total Bilirubin 0.6 mg/dL 0.2-1.3 Laboratory test 06/25/2013 Adamson Flora ([facility]) Free T4 1.01 ng/dL 0.75- 1.54 finding TSH 2.60 mIU/L 0.50-6.00 Lipid Profile 08/17/2012 Adamson Rosita ([facility]) Cholesterol 228 mg/dL High 120-200 HDL 35 mg/dL 30-70 Triglycerides 376 mg/dL High 30-200 HDL Risk Factor 6.5 CALC High 0.0-4.4 LDL (Calculated) 118 CALC 0-129 27 VLDL (Calculated) 75 mg/dL High 0-50 Comprehensive Metabolic 08/17/2012 Adamson Rosita ([facility]) Albumin 4.7 g/dL 3.8-5.5 Prof Alk. Phos. 64 U/L 22-95 Alt (SGPT) 34 U/L 10-40 Ast (Sgot) 20 U/L 5-34 BUN 22 mg/dL 6-26 Calcium 9.1 mg/dL 8.6-10.2 Chloride 99 mEq/L 94-112 Creatinine 1.2 mg/dL 0.6-1.4 Carbon Dioxide 29 mEq/L 21-32 Glucose 106 mg/dL High 70-105 28 Sodium 142 mEq/L 134-149 Total Bilirubin 0.6 mg/dL 0.2-1.3 Total Protein 7.1 g/dL 6.3-8.1 Potassium 4.7 mEq/L 3.6-5.5 Globulin 2.4 g/dL 2.0-4.8 A/G Ratio 2.0 Calc 0.6-2.3 BUN/Creat Ratio 17.5 Calc 8.0-36.0 Laboratory test finding 08/17/2012 Adamson Rosita ([facility]) TSH 2.26 mIU/L 0.50-6.00 LDL (Direct) 122 mg/dL 0-130 CBC Electronic ([facility]) 08/17/2012 [facility] WBC 6.5 3.6-9.6 (607)- - RBC 5.37 3.90-5.70 Hemoglobin (Fma/CMC/CTX) 15.9 g/dL 12.1 - 17.2 Hematocrit (Fma/CMC/CTX) 48.8 % 36.1 - 50.3 Platelets 227 10^3/ul 150-400 Lymph% 29.6 20.5-51.1 Mixed% 5.8 Neutrophils % 64.6 Mean Corpuscular Vol 91 82.2-97.4 Mean Corpuscular Hemoglobin 29.6 27.6-33.3 Mean Corpuscular Hemo Concen 32.6 32.0-36.0 RDW 11.9 11.6-13.7 Mean Platelet Volume 6.7 6.5-11.0 Laboratory test finding 05/04/2012 [facility] Inr (a) 1.3 Low 2-3 (607)- - Basic Metabolic Profile 04/09/2012 Adamson Rosita (a) BUN 23 mg/dL 6- 26 Calcium 8.8 mg/dL 8.6-10.2 Chloride 100 mEq/L 94-112 Creatinine 1.0 mg/dL 0.6-1.4 Carbon Dioxide 27 mEq/L 21-32 Glucose 114 mg/dL High 70-105 Sodium 138 mEq/L 134-149 Potassium 3.8 mEq/L 3.6-5.5 BUN/Creat Ratio 23.4 Calc 8.0-36.0 CBC Manual Diff-a 04/09/2012 [facility] WBC 7.8 3.6-9.6 (607)- - RBC 5.18 3.90-5.70 Hemoglobin (Fma/CMC/CTX) 15.4 g/dL 12.1 - 17.2 Hematocrit (Fma/CMC/CTX) 47.7 % 36.1 - 50.3 Mean Corpuscular Vol 92 82.2-97.4 Mean Corpuscular Hemoglobin 29.7 27.6-33.3 Mean Corpuscular Hemo Concen 32.3 32.0-36.0 Platelets 215 10^3/ul 150-400 RDW 13.1 11.6-13.7 Mean Platelet Volume 7.0 6.5-11.0 Neutrophil 53 Band 2 Lymphocytes 33 Monocyte 3 Eosinophils 5 Atypical Lymph 4 Z#Comment SEE COMMENTS 29 Laboratory test 04/07/2012 [facility] Inr (a) 1.8 Low 2-3 finding (607)- - Laboratory test 03/16/2012 [facility] Inr (a) 1.7 Low 2.0-3.0 finding (607)- - Laboratory test 03/02/2012 Adamson Rosita ([facility]) PSA 0.90 ng/mL 0.00- 4.00 finding Laboratory test 03/02/2012 [facility] Inr (a) 3.1 High 2-3 finding (607)- - CBC Electronic 03/02/2012 [facility] WBC 7.1 3.6-9.6 ([facility]) (607)- - RBC 5.10 3.90-5.70 Hemoglobin (a/CMC/CTX) 15.8 g/dL 12.1 - 17.2 Hematocrit (a/CMC/CTX) 47.0 % 36.1 - 50.3 Platelets 222 10^3/ul 150-400 Lymph% 33.7 20.5-51.1 Mixed% 5.5 Neutrophils % 60.8 Mean Corpuscular Vol 92 82.2-97.4 Mean Corpuscular Hemoglobin 31.0 27.6-33.3 Mean Corpuscular Hemo Concen 33.36 32.0-36.0 RDW 10.7 Low 11.6-13.7 Mean Platelet Volume 6.9 6.5-11.0 Laboratory test 02/19/2012 [facility] Inr (Fma) 1.8 Low 2.0-3.0 finding (607)- - Laboratory test 02/12/2012 [facility] Inr (Fma) 1.1 Low 2.0-3.0 finding (607)- - Laboratory test 01/31/2012 [facility] Inr (Fma) 1.2 Low 2-3 finding (607)- - Laboratory test 01/24/2012 [facility] Inr (Fma) 1.1 Low 2-3 finding (607)- - Lipid Profile 01/17/2012 Juan Diego Becker (a) Cholesterol 250 mg/dL High 120-200 HDL 41 mg/dL 30-70 Triglycerides 291 mg/dL High 30-200 HDL Risk Factor 6.1 CALC High 0.0-4.4 LDL (Calculated) 151 CALC High 0-129 VLDL (Calculated) 58 mg/dL High 0-50 Comprehensive Metabolic 01/17/2012 Juan Diego Becker (a) Albumin 4.9 g/dL 3.8-5.5 Prof Alk. Phos. 69 U/L 22-95 Alt (SGPT) 33 U/L 10-40 Ast (Sgot) 24 U/L 5-34 BUN 14 mg/dL 6-26 Calcium 9.4 mg/dL 8.6-10.2 Chloride 100 mEq/L 94-112 Creatinine 0.9 mg/dL 0.6-1.4 Carbon Dioxide 24 mEq/L 21-32 Glucose 99 mg/dL 70-105 Sodium 139 mEq/L 134-149 Total Bilirubin 0.5 mg/dL 0.2-1.3 Total Protein 7.2 g/dL 6.3-8.1 Potassium 4.5 mEq/L 3.6-5.5 Globulin 2.3 g/dL 2.0-4.8 A/G Ratio 2.2 Calc 0.6-2.2 BUN/Creat Ratio 14.8 Calc 8.0-36.0 Laboratory test finding 01/17/2012 Juan Diego Becker (a) TSH 2.46 mIU/L 0.50-6.00 LDL (Direct) 119 mg/dL 0-130 Free T4 0.88 ng/dL 0.75-1.54 Ua - Non Micro (Fma) 01/17/2012 [facility] Appearance yellow (607)- - Color clear Glucose, Urine (Fma/CMC/CTX) neg Bilirubin neg Ketones trace # SP Grav 1.020 Blood neg PH 5.5 Protein neg Urobil 0.2 Nitrite neg Leukocytes (a/[facility]) neg Laboratory test finding 01/17/2012 [facility] Inr ([facility]) 0.9 Low 2-3 (607)- - CBC Electronic ([facility]) 01/17/2012 [facility] WBC 6.6 3.6-9.6 (607)- - RBC 5.36 3.90-5.70 Hemoglobin (Fma/CMC/CTX) 16.8 g/dL 12.1 - 17.2 30 Hematocrit (a/CMC/CTX) 52.4 % High 36.1 - 50.3 Platelets 234 10^3/ul 150-400 Lymph% 36.7 20.5-51.1 Mixed% 8.3 Neutrophils % 55.0 Mean Corpuscular Vol 98 High 82.2-97.4 Mean Corpuscular Hemoglobin 31.4 27.6-33.3 Mean Corpuscular Hemo Concen 32.1 32.0-36.0 RDW 11.2 Low 11.6-13.7 Mean Platelet Volume 6.8 6.5-11.0 Comprehensive Metabolic 01/17/2012 Adamson Rosita ([facility]) Albumin 4.9 g/dL 3.8-5.5 Prof Alk. Phos. 69 U/L 22-95 Alt (SGPT) 33 U/L 10-40 Ast (Sgot) 24 U/L 5-34 BUN 14 mg/dL 6-26 Calcium 9.4 mg/dL 8.6-10.2 Chloride 100 mEq/L 94-112 Creatinine 0.9 mg/dL 0.6-1.4 Carbon Dioxide 24 mEq/L 21-32 Glucose 99 mg/dL 70-105 Sodium 139 mEq/L 134-149 Total Bilirubin 0.5 mg/dL 0.2-1.3 Total Protein 7.2 g/dL 6.3-8.1 Potassium 4.5 mEq/L 3.6-5.5 Globulin 2.3 g/dL 2.0-4.8 A/G Ratio 2.2 Calc 0.6-2.2 BUN/Creat Ratio 14.8 Calc 8.0-36.0 Laboratory test 01/17/2012 Juan Diego Becker (a) Free T4 0.88 ng/dL 0.75- 1.54 finding TSH 2.46 mIU/L 0.50-6.00 Lipid Profile 01/17/2012 Juan Diego Rosita ([facility]) Cholesterol 250 mg/dL High 120-200 HDL 41 mg/dL 30-70 Triglycerides 291 mg/dL High 30-200 HDL Risk Factor 6.1 CALC High 0.0-4.4 LDL (Calculated) 151 CALC High 0-129 31 VLDL (Calculated) 58 mg/dL High 0-50 Laboratory test 01/17/2012 Juan Diego Rosita (a) LDL (Direct) 119 mg/dL 0 -130 finding Comprehensive 06/21/2010 Juan Diego Becker (a) Albumin 4.5 g/dL 3.8-5.5 Metabolic Prof Alk. Phos. 59 U/L 22-95 Alt (SGPT) 56 U/L High 10-40 Ast (Sgot) 37 U/L High 5-34 BUN 21 mg/dL 6-26 Calcium 8.9 mg/dL 8.6-10.2 Chloride 97 mEq/L 94-112 Creatinine 1.1 mg/dL 0.6-1.4 Carbon Dioxide 23 mEq/L 21-32 Glucose 114 mg/dL High 70-105 32 Sodium 143 mEq/L 134-149 Total Bilirubin 0.8 mg/dL 0.2-1.3 Total Protein 7.1 g/dL 6.3-8.1 Potassium 4.4 mEq/L 3.6-5.5 Globulin 2.6 g/dL 2.0-4.8 A/G Ratio 1.7 Calc 0.6-2.2 BUN/Creat Ratio 18.5 Calc 8.0-36.0 Lipid Profile 06/21/2010 Juan Diego Becker (a) Cholesterol 206 mg/dL High 120-200 HDL 37 mg/dL 30-70 Triglycerides 307 mg/dL High 30-200 HDL Risk Factor 5.6 CALC High 0.0-4.0 LDL (Calculated) 108 CALC 0-129 33 VLDL (Calculated) 61 mg/dL High 0-50 Laboratory test finding 06/21/2010 Juan Diego Becker (a) TSH 2.48 mIU/L 0.50-6.00 PSA 1.80 ng/mL 0.00-4.00 LDL (Direct) 92 mg/dL 0-130 Ua - Non Micro ([facility]) 06/21/2010 [facility] Appearance clear (607)- - Color yellow Glucose, Urine (a/CMC/CTX) neg Bilirubin neg Ketones neg SP Grav >1.030 Blood neg PH 5.5 Protein neg Urobil 0.2 Nitrite neg Leukocytes ([facility]) neg CBC Electronic ([facility]) 06/21/2010 [facility] WBC 6.9 3.6-9.6 (607)- - RBC 5.21 3.90-5.70 Hemoglobin (a/CMC/CTX) 16.4 g/dL 12.1 - 17.2 Hematocrit (a/CMC/CTX) 48.0 % 36.1 - 50.3 Platelets 206 10^3/ul 150-400 Lymph% 21.2 20.5-51.1 Mixed% 3.9 Neutrophils % 74.9 Mean Corpuscular Vol 92 82.2-97.4 Mean Corpuscular Hemoglobin 31.4 27.6-33.3 Mean Corpuscular Hemo Concen 34.1 32.0-36.0 RDW 11.5 Low 11.6-13.7 Mean Platelet Volume 7.2 6.5-11.0 CBC With Diff ([facility]) 08/16/2001 [facility] WBC 6.0 3.6-9.6 (607)- - Lymphocytes 29.3 % 20.5 - 51.1 Monocytes 3.9 % 1.7-9.3 Granulocytes 66.8 % 42.2 - 75.2 Lymphocytes 1.8 10^3/uL 0.7 - 4.9 Monocytes 0.2 10^3/uL 0.1 - 0.9 Granulocytes 4.0 10^3/uL 1.5 - 7.2 RBC 5.28 3.90-5.70 Hemoglobin 16.2 g/dL 12.1 - 17.2 Hematocrit 48.3 % 36.1 - 50.3 Mean Corpuscular Vol 91.5 82.2-97.4 Mean Corpuscular Hemaglobin 30.7 27.6-33.3 Mean Corpuscular Hemo Concen 33.6 33.0-34.8 RDW 11.6 11.6-13.7 Platelets 237. 10^3/ul 150-400 Mean Platelet Volume 7.6 7.4-10.4 Lipid Profile (a) 08/16/2001 [facility] Cholesterol 173 mg/dL 140 -200 (607)- - Triglyceride 189 mg/dL High 30-150 VLDL 38 0-50 LDL-Calculated 102 0-160 HDL-Chol 33 30-70 Laboratory test finding 08/16/2001 [facility] Glucose 105 mg/dL 70 - 118 (607)- - Free T4 0.97 ng/dL 0.7-1.55 Ua - Non Micro (a New) 08/07/2001 [facility] Appearance CLEAR YELLOW (607)- - Glucose NEGATIVE Bilirubin NEGATIVE Ketones NEGATIVE SP Grav >=1.030 Blood NEGATIVE PH 5.0 Protein SSA NEGATIVE Urobil 0.2 Nitrite NEGATIVE Leukocytes NEGATIVE 1 [id number] 2 [id number] 3 consistent w/ previous results 4 Negative <0.91 Equivocal 0.91 - 1.09 Positive >1.09 5 Protein electrophoresis scan will follow via computer, mail, or tree girdler delivery. 6 Negative <0.91 Equivocal 0.91 - 1.09 Positive >1.09 7 Negative <0.80 Equivocal 0.80 - 1.19 Positive >1.19 IgM levels may peak at 3-6 weeks post infection, then gradually decline. 8 FASTING 9 Protein electrophoresis scan will follow via computer, mail, or tree girdler delivery. 10 The SPE pattern appears essentially unremarkable. Evidence of monoclonal protein is not apparent. 11 INVALID 12 SEE RESULT BELOW Name: LINDSAY THORNTON : [address]: Michael Hager MD Acct: [id number] Unit: [id number] AGE: 56 Location: ENDO Re03/05/16 SEX: M Status: DEP REF SPEC: [id number] JW: 03/05/16- SUBM DR: Michael Hager MD REQ: [id number] RECD: 03/05/16-0191 STATUS: DEEPA SPAULDING DR: Shady Antonio MD _ ORDERED: LEVEL IV FINAL DIAGNOSIS Colon, sigmoid, biopsy: -- Tubular adenoma. -- No high grade dysplasia or malignancy. CLINICAL HISTORY Gastroesophageal reflux disease - Nexium, TUMS, proton pump inhibitor 6 years POST-OPERATIVE DIAGNOSIS Esophagus - no erosions, no Parikh's, FP+; esophagogastric 43 - no scar; stomach - approximately 5 3-6 cm FOP's, CLOtest; duodenum - normal x35 cm. Colonoscopy - only polyp at 50 cm. Conclusions/Plan: Loose hiatus; proton pump inhibitor, polyps mild; colon polyp; 3 years GROSS DESCRIPTION The specimen is received in formalin labeled, Biopsy Nodule at Proximal Sigmoid, and consists of two speckled paz-brown irregular to polypoid soft tissue fragments measuring 0.4 x 0.2 x 0.1 cm and 0.5 by up to 0.3 by up to 0.3 cm, which are entirely submitted in one cassette. Signed (signature on file) Nate Mansfield MD [id number] END OF REPORT * ML=Testing performed at Main Lab DEPARTMENT OF PATHOLOGY, [address] [place] [address] Nate Mansfield M.D. Director [facility] # [id number] 13 SEE RESULT BELOW Name: LINDSAY THORNTON : [address]: Michael Hager MD Acct: [id number] Unit: [id number] AGE: 56 Location: ENDO Re03/05/16 SEX: M Status: DEP REF SPEC: [id number] JW: 03/05/16 [facility] DR: Michael Hager MD REQ: [id number] RECD: 03/05/16 STATUS: KAYA SPAULDING DR: Shady Loco MD _ SOURCE: GAS ANTRUM SPDESC: ORDERED: Clotest Procedure Result Reported Site Clotest Final 03/06/16- 0755 ML Clotest Negative * ML - MAIN LAB ([facility]) . END OF REPORT * ML=Testing performed at Main Lab DEPARTMENT OF PATHOLOGY, [address] [place] [address] Nate Mansfield M.D. Director [facility] # [id number] 14 1 sst 15 Negative <0.91 Equivocal 0.91 - 1.09 Positive >1.09 16 Negative <0.80 Equivocal 0.80 - 1.19 Positive >1.19 IgM levels may peak at 3-6 weeks post infection, then gradually decline. [address] ANTONIO AT *4561. [address] ANTONIO AT *4562. 19 Because ethnic data is not always readily available, this report includes an eGFR for both -Americans and non- Americans. The National Kidney Disease Education Program (NKDEP) does not endorse the use of the MDRD equation for patients that are not between the ages of 18 and 70, are , have extremes of body size, muscle mass, or nutritional status, or are non- or non-. According to the National Kidney Foundation, irrespective of diagnosis, the stage of the disease is based on the level of kidney function: Stage Description GFR(mL/min/1.73 m(2)) 1 Kidney damage with normal or decreased GFR 90 2 Kidney damage with mild decrease in GFR 60-89 3 Moderate decrease in GFR 30-59 4 Severe decrease in GFR 15-29 5 Kidney failure <15 (or dialysis) 20 Positive: 5 of the following Borrelia-specific bands: 18,23,28,30,39,41,45,58, 66, and 93. Negative: No bands or banding patterns which do not meet positive criteria. 21 Note: An equivocal or positive EIA result followed by a negative Western Blot result is considered NEGATIVE. An equivocal or positive EIA result followed by a positive Western Blot is considered POSITIVE by the CDC. Positive: 2 of the following bands: 23,39 or 41 Negative: No bands or banding patterns which do not meet positive criteria. Criteria for positivity are those recommended by CDC/ASTPHLD. p23=Osp C, d09=cdzxcgaiv Note: Sera from individuals with the following may cross react in the Lyme Western Blot assays: other spirochetal diseases (periodontal disease, leptospirosis, relapsing fever, yaws, and pinta); connective autoimmune (Rheumatoid Arthritis and Systemic Lupus Erythematosus and also individuals with Antinuclear Antibody); other infections (Wister Spotted Fever; Antonio-Love Virus, and Cytomegalovirus). 22 RUN DATE: 03/03/14 [facility] LAB LIVE PAGE 1 RUN TIME: [address] [place] [id number] Specimen Inquiry Name: LINDSAY THORNTON : [address]: Michael Hager MD Acct: [id number] Unit: [id number] AGE: 54 Location: [facility] Re03/02/14 SEX: M Status: REG REF SPEC: [id number] JW: 03/02/14- SUBM DR: Michael Hager MD REQ: [id number] RECD: 03/02/14 STATUS: DEEPA SPAULDING DR: Shady Loco MD _ ORDERED: LEVEL IV/2 FINAL DIAGNOSIS 1. Colon, ileocecal polyp, biopsies: -- Tubulovillous adenoma. -- No high-grade dysplasia identified. 2. Colon, rectal polyp at 1 cm biopsy: -- Villoglandular adenoma. -- No high-grade dysplasia identified. CLINICAL HISTORY Routine screening colonoscopy with rectal bleeding POST-OPERATIVE DIAGNOSIS Screening colonoscopy to cecum - polyp above ileocecal valve, 1 fold; also rectal polyp. Polyps - rectum and right - follow-up 1 year GROSS DESCRIPTION 1. The specimen is received in formalin labeled, Ileocecal Polyp, and consists of a 1.0 x 1.0 x 0.4 cm aggregate of multiple paz-pink polypoid soft tissue fragments, which is submitted entirely in one cassette. 2. The specimen is received in formalin labeled, Rectal Polyp at 1 Cm, and consists of a 1.1 x 0.8 x 0.6 cm paz-red polypoid soft tissue fragment, which is inked at the base, trisected and submitted entirely in one cassette. Signed (signature on file) Nate Mansfield MD 1322 END OF REPORT * ML=Testing performed at Main Lab DEPARTMENT OF PATHOLOGY, [address] [place] [address] Nate Mansfield M.D. Director [facility] # [id number] 23 1 SST 24 Negative <0.91 Equivocal 0.91 - 1.09 Positive >1.09 Note: The CDC currently advises that Western blot testing be performed following all equivocal or positive EIA results. Final diagnosis should include appropriate clinical findings and a positive EIA which is also positive by Western blot. 25 Negative <0.91 Equivocal 0.91 - 1.09 Positive >1.09 Note: IgM levels may peak at 3-6 weeks post infection, then gradually decline. FDA currently advises that Western Blot testing be performed following all equivocal or positive EIA results. Final diagnosis should include appropriate clinical findings and a positive EIA which is also positive by Western Blot. 26 There is no abnormal band/spike seen. 27 INVALID 28 RESULT FRITZ'D 29 RBC/PLTS NORMAL 30 results rechecked 31 INVALID 32 result fritz'd 33 INVALID Procedures Date Code Description Status 04/16/2017 53210 Vision Test- screening test of visual acuity, Completed quantitative, bila 04/02/2016 94829 Vision Test- screening test of visual acuity, Completed quantitative, bila 02/29/2016 [id number] Colonoscopy Completed 11/20/2015 20157 Electrocardiogram Complete Completed 03/10/2015 34021 Vision Test- screening test of visual acuity, Completed quantitative, bila 02/21/2015 41799 Finger Or Heel Stick Completed 09/08/2014 83130 Finger Or Heel Stick Completed 06/01/2014 57401 Finger Or Heel Stick Completed 03/12/2014 98570 Finger Or Heel Stick Completed 03/08/2014 92266 Finger Or Heel Stick Completed 03/02/2014 [id number] Colonoscopy Completed 07/21/2013 04605 Finger Or Heel Stick Completed 07/03/2013 46803 Finger Or Heel Stick Completed 06/30/2013 22169 Finger Or Heel Stick Completed 06/25/2013 82225 Electrocardiogram Complete Completed 05/04/2012 94339 Finger Or Heel Stick Completed 04/07/2012 07468 Finger Or Heel Stick Completed 03/16/2012 72117 Finger Or Heel Stick Completed 02/19/2012 53226 Finger Or Heel Stick Completed 02/12/2012 18495 Finger Or Heel Stick Completed 01/31/2012 05203 Finger Or Heel Stick Completed 01/24/2012 69727 Finger Or Heel Stick Completed 01/17/2012 86199 Vision Test- screening test of visual acuity, Completed quantitative, bila 01/17/2012 74809 Electrocardiogram Complete Completed 05/13/2006 46453 Electrocardiogram Complete Completed Encounters Type Date Location Provider Dx Diagnosis Office Visit 11/10/2017 [facility] Office Shady Raza E78.4 Other hyperlipidemia 10:20a Mihai Loco G60.9 Hereditary and idiopathic neuropathy, unspecified G47.33 Obstructive sleep apnea (adult) (pediatric) M10.9 Gout, unspecified Office Visit 08/22/2017 11:30a Main Office Ly Mejía R21 Rash and other [place], PHARMACY DISTRICT MANAGER nonspecific skin eruption Office Visit 04/17/2017 8:20a Main Office Shady Raza E78.4 Other hyperlipidemia Mihai Loco G60.9 Hereditary and idiopathic neuropathy, unspecified G47.33 Obstructive sleep apnea (adult) (pediatric) M15.0 Primary generalized (osteo)arthritis N40.0 Benign prostatic hyperplasia without lower urinry tract symp K21.9 Gastro-esophageal reflux disease without esophagitis I48.0 Paroxysmal atrial fibrillation Office Visit 04/16/2017 10:00a Main Office Sandie Mckinney, Z23 Encounter for Afnp-C immunization Z00.00 Encntr for general adult medical exam w/o abnormal findings Office Visit 12/26/2016 2:40p Main Office Shady Loco I48.1 Persistent atrial M.D. fibrillation E78.4 Other hyperlipidemia G60.9 Hereditary and idiopathic neuropathy, unspecified G47.33 Obstructive sleep apnea (adult) (pediatric) Z23 Encounter for immunization Office Visit 09/24/2016 2:20p Main Office Shady Loco, I48.1 Persistent atrial M.D. fibrillation G60.9 Hereditary and idiopathic neuropathy, unspecified M10.079 Idiopathic gout, unspecified ankle and foot E78.4 Other hyperlipidemia Office Visit 09/17/2016 Main Office Sandie M10.071 Idiopathic gout, 4:30p Faye right ankle and Afnp-C foot Office Visit 09/09/2016 [facility] Shady Raza I48.1 Persistent atrial 3:40p Office Yaw LocoDYadira fibrillation G60.9 Hereditary and idiopathic neuropathy, unspecified E78.4 Other hyperlipidemia M15.0 Primary generalized (osteo)arthritis G47.33 Obstructive sleep apnea (adult) (pediatric) E78.1 Pure hyperglyceridemia Office Visit 05/24/2016 3:00p [facility] Shady Raza I48.1 Persistent atrial Yaw LocoDYadira fibrillation G60.9 Hereditary and idiopathic neuropathy, unspecified E78.4 Other hyperlipidemia E78.1 Pure hyperglyceridemia 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 Office Visit 04/02/2016 10:00a Main Office Sandie Mckinney, Z02.4 Encounter for Afnp-C examination for driving license I48.0 Paroxysmal atrial fibrillation Z23 Encounter for immunization Office Visit 11/30/2015 1:00p Main Office Maxine Pisano, D23.5 Other benign PHARMACY DISTRICT MANAGER neoplasm of skin of trunk Office Visit 11/20/2015 2:00p [facility] Office Shady Raza I48.1 Persistent atrial Shallish, fibrillation M.DYadira M15.0 Primary generalized (osteo)arthritis G60.9 Hereditary and idiopathic neuropathy, unspecified N40.0 Enlarged prostate without lower urinary tract symptoms Z00.00 Encntr for general adult medical exam w/o abnormal findings E78.1 Pure hyperglyceridemia Z79.01 penitentiary (current) use of anticoagulants Office Visit 03/10/2015 1:30p [facility] Office Brandon Solorio, Z02.89 Encounter for other M.DYadira administrative examinations Office Visit 02/21/2015 2:00p [facility] Office Alejandro Dickerson Z79.01 penitentiary (current) [place], use of M.D. anticoagulants I48.0 Paroxysmal atrial fibrillation Z23 Encounter for immunization R21 Rash and other nonspecific skin eruption Office Visit 08/05/2014 [facility] Fallon V58.61 Anticoagulants Long 1:30p Office CHUCK Etienne Term (Current) Use Encounter 427.31 Atrial Fibrillation 463 Tonsillitis Acute 719.49 Pain Joint Multiple Sites Office Visit 02/02/2014 2:00p Main Office Brandon Solorio V70.3 Examination Other [facility] For Administrative Purpose Office Visit 01/14/2014 4:00p [facility] Office Shady Raza 427.31 Atrial Fibrillation Mihai Loco 272.4 Hyperlipidemia Other Unspec 569.49 Rectum & Anus Disorder Other v70.5 Examination Health Of Defined Subpopulations V04.81 Need For Prophylactic Vaccination & Inoculation/Influenza Office Visit 09/13/2013 11:00a [facility] Shady Raza 427.31 Atrial Office Mihai Loco Fibrillation 272.4 Hyperlipidemia Other Unspec 272.1 Hypertriglyceridemia Pure Office Visit 07/10/2013 10:30a Main Office Shady Raza V58.61 Anticoagulants Long Mihai Loco Term (Current) Use Encounter 427.31 Atrial Fibrillation 356.9 Neuropathy Peripheral Hereditary Idiopathic Unspec 724.5 Backache Unspec 780.57 Unspecified Sleep Apnea 600.00 hypertrophy benign of prostate without urinary obstruction 272.1 Hypertriglyceridemia Pure Office Visit 06/25/2013 10:00a Leyla Raza 427.31 Atrial Office Mihai Loco Fibrillation 724.5 Backache Unspec 530.81 Esophageal Reflux Office 12/25/2012 Leyla Raza v04.81 Need For Prophylactic Visit 1:40p Office Jhony Loco Inoculation/Influenza 427.31 Atrial Fibrillation 530.81 Esophageal Reflux Office Visit 08/17/2012 11:20a Leyla Raza 427.James Atrial Office Mihai oLco Fibrillation 272.4 Hyperlipidemia Other Unspec 530.81 Esophageal Reflux 272.1 Hypertriglyceridemia Pure Office Visit 05/04/2012 Leyla Raza V58.61 Anticoagulants Long 1:00p Office Mihai Loco Term (Current) Use Encounter 427.31 Atrial Fibrillation Office Visit 03/10/2012 7:20p Main Office Shady Raza 427.31 Atrial Fibrillation Mihai Loco 786.50 Pain Chest Unspec Office Visit 03/02/2012 1:40p Leyla Raza 427.James Atrial Office Mihai Loco Fibrillation V58.61 Anticoagulants Avionics Systems Technician (Current) Use Encounter 600.00 hypertrophy benign of prostate without urinary obstruction 569.3 Hemorrhage Rectum & Anus Office Visit 01/17/2012 8:15a [facility] Daina Garcia, V70.5 Examination Health Office Afnp-C Of Defined Subpopulations 427.31 Atrial Fibrillation V72.0 Examination Eyes & Vision 530.81 Esophageal Reflux Office Visit 09/28/2010 11:00a [facility] Rosi Echols 530.81 Esophageal Reflux Mihai Maza Office Visit 06/08/2010 1:00p [facility] Office Shady Raza 780.57 Unspecified Sleep Mihai Loco Apnea 401.1 Hypertension Benign 530.81 Esophageal Reflux 784.0 Headache 600.00 hypertrophy benign of prostate without urinary obstruction 272.1 Hypertriglyceridemia Pure Office Visit 05/18/2010 1:00p [facility] Office Shady Raza 530.81 Crystal Loco M.D. Reflux 780.57 Unspecified Sleep Apnea 401.1 Hypertension Benign 784.0 Headache Office Visit 07/03/2007 11:40a [facility] Luke Lewis 709.9 Skin & Mihai Yip Subcutaneous Tissue Disorders Unspec Office Visit 05/13/2006 1:40p [facility] Alejandro Dickerson 786.59 Pain Chest Other Mihai Garcia Office Visit 05/26/2002 3:00p Main Office Daina Garcia, 486 Pneumonia Organism Afnp-C Unspec Office Visit 08/07/2001 1:20p [facility] Shady Loco M.D. Plan of Treatment Future Appointment(s):12/14/2018 10:20 am - Shady Loco M.D. at [facility] Telsnm3905/25/2018 - Shady Loco M.D.M15.0 Primary generalized (osteo) arthritisComments:continue present medication of Tramadol to use prn for back and knee painK21.9 Gastro-esophageal reflux disease without esophagitisNew Labs: Ict Hemoccult (Fma), Ordered: 05/25/18Comments:The patient was instructed to call if symptoms worsened. He is going to increase omeprazole to 40 mg daily before his plvjgdafkT54.0 Paroxysmal atrial fibrillationComments:now in afib, ablation planned in May, by Dr LoganN40.0 Benign prostatic hyperplasia without lower urinary tract symComments:The patient was advised to have yearly digital rectal exams, and a yearly psa . Patient declines a prostate exam bijttA39.33 Obstructive sleep apnea (adult) (pediatric)Comments:denies symptoms , unable to use cpapZ23 Encounter for immunizationComments:flu shot givenFollow up:Followup:. (Follow up)AllComments:check lab work , colonoscopy advised in 2019Follow up:return to office 6 months
[2018-06-05 15:20] LABS: ABS Basophils 0.1 10^3/ul (0-0.2); ABS Eosinophils 0 10^3/ul (0-0.6); ABS Lymphocytes 1.2 10^3/ul (1.0-4.8); ABS Monocytes 0.8 10^3/ul (0-0.8); ABS Neutrophils 9.7 10^3/ul (1.5-7.7); ABS Nucleated RBC 0 10^3/ul; Eosinophil % 0.4 %; Hematocrit 38 % (42-52); Hemoglobin 12.6 g/dl (14.0-18.0); Lymphocyte % 10.2 %; Mean Corpuscular HGB Conc 33 g/dl (31-36); Mean Corpuscular Hemoglobin 30 pg (27-31); Mean Corpuscular Volume 90 fL (80-94); Mean Platelet Volume 7.6 fL (7.4-10.4); Nucleated Red Blood Cells % 0; Platelet Count 166 10^3/ul (150-450); Red Blood Count 4.21 10^6/ul (4.00-5.40); Red Cell Distribution Width 14 % (10.5-15); White Blood Count 11.9 10^3/ul (3.5-10.8)
[2018-06-05 15:37] LABS: ALT 45 U/L (7-52); AST 58 U/L (13-39); Alkaline Phosphatase 37 U/L (34-104); Anion Gap 6 mmol/L (2-11); BUN/Creatinine Ratio 18.9 (8-20); Blood Urea Nitrogen 21 mg/dL (6-24); CO2 Carbon Dioxide 26 mmol/L (22-32); Calcium 8.1 mg/dL (8.6-10.3); Chloride 105 mmol/L (101-111); EGFR African American 82.9 (>60); EGFR Non-African American 68.5 (>60); Glucose 175 mg/dL (70-100); Potassium 4.1 mmol/L (3.5-5.0); Sodium 137 mmol/L (135-145)
[2018-06-05 15:46] LABS: Troponin I 5.64 ng/mL (<0.04)
[2018-06-05 18:01] VITALS: BP 111/67
--- NOTE | 2018-06-05 19:24 | ECHO ---
Patient: LINDSAY THORNTON [facility] Rec#: [id number] : 1960 Date: 06/05/2018 Age: 58y Height: 183 cm / 72.0 in Weight: 122 kg / 268.9 lbs Sex: M BSA: 2.42 Room#: [facility] Admit Date#: 06/05/2018 Type: Inpatient Referring: Eleazar Jordan MD Reading: Sarmad Richards MD Blower Installer: Hailey Barragan RDCS CC: Sarmad Richards MD CC: Shady Loco MD Transthoracic Echocardiogram Indication: Pericardial Effusion BP: 108/69 HR: 89 Rhythm: NSR Findings History: S/P cardiac ablation 06/04/18, a-fib, HLD, BECKI, peripheral neuropathy, hiatal hernia, former smoker. Technical Comments: The study quality is fair. Completed at 1650. Left Ventricle: The left ventricular chamber size is normal. Mild concentric left ventricular hypertrophy is observed. There is normal left ventricular systolic function. The estimated ejection fraction is 55-60%. Abnormal left ventricular diastolic function is observed. Abnormal left ventricular diastolic filling is observed, consistent with impaired relaxation. Left Atrium: The left atrium is moderately dilated. Right Ventricle: The right ventricle is mildly dilated. The right ventricular global systolic function is normal. Right Atrium: The right atrium is mildly dilated. Aortic Valve: The aortic valve is trileaflet. The aortic valve leaflets are mildly thickened. There is no evidence of aortic regurgitation. There is no evidence of aortic stenosis. Mitral Valve: There is mitral annular calcification. The mitral valve leaflets are mildly thickened. There is a trace of mitral regurgitation. There is no evidence of mitral stenosis. Tricuspid Valve: The tricuspid valve leaflets are normal. There is trace tricuspid regurgitation. Unable to estimate the right ventricular systolic pressure. There is no tricuspid stenosis. Pulmonic Valve: The pulmonic valve appears normal. There is a trace pulmonic regurgitation. There is no pulmonic stenosis. Pericardium: There is no significant pericardial effusion. A pericardial fat pad is visualized. Aorta: There is mild dilatation of the ascending aorta. There is no dilatation of the aortic arch. There is mild dilatation of the aortic root. Pulmonary Artery: The main pulmonary artery appears normal. Venous: The inferior vena cava is dilated. There is an approximate 50% respiratory change in the inferior vena cava dimension. Conclusions Mild concentric left ventricular hypertrophy is observed. The estimated ejection fraction is 55-60%. Abnormal left ventricular diastolic function is observed. The left atrium is moderately dilated. The right ventricle is mildly dilated. The right atrium is mildly dilated. There is a trace of mitral regurgitation. There is trace tricuspid regurgitation. There is mild dilatation of the ascending aorta. There is mild dilatation of the aortic root. Small clear space adjacent to the RV free wall and apex; consider adipose vs a trivial pericardial effusion. Similar to the TENISHA report of 2015. Measurements Name Value Normal Range RVIDd (AP) 2D 3.5 cm (0.9 - 2.6) RVDdMajor (2D) 4.7 cm (2.2 - 4.4) RAd ISD 4CH 5.4 cm (3.4 - 4.9) RA (A4C)W 5.1 cm (2.9 - 4.6) IVSd (2D) 1.1 cm (0.6 - 1) LVPWd (2D) 1.1 cm (0.6 - 1) LVIDd (2D) 5.2 cm (3.6 - 5.4) LVIDs (2D) 3.9 cm - LV FS (2D) 25 % (25 - 45) Aortic Annulus 2.3 cm (1.4 - 2.6) Ao root diameter (2D) 3.6 cm (2.1 - 3.5) Ascending Ao 3.8 cm (2.1 - 3.4) Aortic arch 2.3 cm (1.8 - 3.4) LA dimension (AP) 2D 5.2 cm (2.3 - 3.8) LAd ISD 4CH 5.7 cm (2.9 - 5.3) LA ISD 4CH W 5 cm (2.5 - 4.5) Name Value Normal Range LA ESV BP (A/L) index 42 ml/m2 - Name Value Normal Range MV E-wave Vmax 0.8 m/sec - MV deceleration time 232 msec - MV A-wave Vmax 0.4 m/sec - MV E:A ratio 2 ratio - LV septal e' Vmax 0.11 m/sec - LV lateral e' Vmax 0.14 m/sec - LV E:e' septal ratio 7.3 ratio - LV E:e' lateral ratio 5.7 ratio - Name Value Normal Range AV Vmax 1.1 m/sec - AV VTI 22 cm - AV peak gradient 5 mmHg - AV mean gradient 3 mmHg - LVOT Vmax 1 m/sec - LVOT VTI 19 cm - LVOT peak gradient 4 mmHg - LVOT mean gradient 2 mmHg - DANIELLE Vmax 1 m/sec - Name Value Normal Range IVC diameter 2.3 cm - Name Value Normal Range PV Vmax 1 m/sec - PV peak gradient 4 mmHg -
--- NOTE | 2018-06-05 21:24 | CONS ---
CC: Dr. Sarmad Richards; Dr. Loco CARDIOLOGY CONSULTATION: DATE OF CONSULT: 06/05/18 CONSULTING PHYSICIAN: Dr. Eleazar Jordan. REASON FOR EVALUATION: Chest pain. I was called to the ER urgently for evaluation of Mr. Ritchie by Dr. Jordan. HISTORY OF PRESENT ILLNESS: Mr. Ritchie has a longstanding history of paroxysmal atrial fibrillation and underwent an extensive ablation yesterday with Dr. Logan at the [facility]. He apparently had pulmonary vein isolation and then had 3 different types of atrial flutter that were ablated. It was a prolonged procedure. The patient was discharged this morning, he was feeling well. He went home and had lunch. About an hour after lunch, he had severe chest discomfort. He said it was worse lying down and was worse with inspiration. Because of these symptoms, he came to the emergency room , was 9/10. He had taken some Tylenol and tramadol at home, but it continued. He came here, was given morphine, and it is down to 2 to 3/10. He continues to have pain, worse with inspiration. He denies any syncope, near syncope, orthopnea, or peripheral edema. He has had no fevers or chills, no sour taste. PAST MEDICAL HISTORY: Includes mitral regurgitation, paroxysmal atrial fibrillation; cardioversion in July [address] Logan; started on propafenone with recurrent AFib after that, mild sleep apnea; intolerant of CPAP, esophagitis, GI bleed in 1993, gastroesophageal reflux, hiatal hernia, obesity. PAST SURGICAL HISTORY: Includes wisdom tooth extraction and the procedure yesterday, ablation. He had a cardiac catheterization in March 2012 which revealed normal coronaries, EF was 60% to 65%. MEDICATIONS: Include: 1. Pradaxa 150 mg twice a day. 2. Fenofibrate 140 mg a day. 3. Metoprolol succinate 25 mg twice a day. 4. Omeprazole 20 mg a day. 5. Tramadol 50 mg as needed. 6. Propafenone 425 mg 2 times a day. He had cardioversions on 01/28/17 and 11/15. ALLERGIES: Include PENICILLIN. 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 PHYSICAL EXAM: He is a well-developed, obese gentleman, in no apparent distress. Blood pressure 108/69, pulse of 87, O2 sat is 98% on room air. No significant JVD. Carotids 2+. Cardiac Exam: S1 and S2. No current murmurs, gallops, or rubs. Abdomen: Bowel sounds present, nontender. Chest was clear. Extremities: No significant edema. Negative Homans sign. DIAGNOSTIC STUDIES/LAB DATA: His EKG revealed sinus rhythm with nonspecific lateral T-wave flattening, inferolateral T-wave flattening; new compared to previous. Labs include INR 1, D-dimer less than 200. Sodium 137, potassium 4.1, BUN 21, creatinine of 1.11, troponin of 5.64, CRP of 11.5, AST mildly elevated at 58. White count mildly elevated at 11.9, hemoglobin of 12.6, hematocrit of 38, and platelet count of 166. CRP elevated at 11.5. Chest x-ray by report, no evidence of pulmonary edema, pneumothorax, or acute intrathoracic process. IMPRESSION: My impression is that Mr. iRtchie appears to have chest pain after recent extensive ablation. I did discuss the case with Dr. Jordan, the patient and his , and Dr. Logan by telephone. I suspect that his pain may be related to pericardial inflammation after recent extensive ablation. It is less likely that he has a perforation, which usually develops later, or pulmonary embolism given his adequate oxygen saturations. The nature of the pain seems pleuritic. For the time being, I recommend the followin. He is to have an echo to evaluate for pericardial effusion. 2. He is to have a CT to rule out esophageal perforation. 3. He is to try nonsteroidal antiinflammatories for pain control. 4. If he has improvement in his pain, we will consider pain management as an outpatient. TIME SPENT: Critical care, approximately 45 minutes total. [id number]/[facility] #: [id number] addendum: echo without significant pericardial effusion and ct negative for esophageal defect. will continue pain control. YG
== END | disposition home or self-care (01) ==
LOC: ED 14:39
DX: R07.9 Chest pain, unspecified (principal); Z88.0 Allergy status to penicillin; K21.9 Gastro-esophageal reflux disease without esophagitis; I48.91 Unspecified atrial fibrillation; Z79.01 Long term (current) use of anticoagulants; E66.9 Obesity, unspecified; K44.9 Diaphragmatic hernia without obstruction or gangrene; Z87.891 Personal history of nicotine dependence
CPT/HCPCS: 36415; 71045; 71260; 80053; 83605; 83880; 84484; 85025; 85379; 85610; 86140; 93005; 93306; 96374; 96375; 99283; J1885; J2270; Q9967